=== PATIENT | female | born 1965 | race Caucasian/White ===

== ENCOUNTER 2018-06-30 10:06 | Emergency (ER) | payer OTHER ==
[~2018-06-30] VITALS: Ht 157.5 cm; Wt 58.1 kg
[~2018-06-30 10:06] MED LIST: CLARITIN10 MG PO; FLUOXETINE HCL20 MG PO; TOPAMAX25 MG PO
[2018-06-30] MEDS ORDERED: LITHATE20 MG PO (10:28)
[2018-06-30] MEDS ORDERED: VENTOLIN HFA18 GM (10:28)
[2018-06-30] MEDS ORDERED: PROTONIX40 MG PO (14:17)
== END 2018-06-30 14:37 | disposition home or self-care (01) ==
LOC: ED 10:06
DX: R10.13 Epigastric pain (principal); F32.9 Major depressive disorder, single episode, unspecified; Z90.710 Acquired absence of both cervix and uterus; Z88.5 Allergy status to narcotic agent; Z79.899 Other long term (current) drug therapy
CPT/HCPCS: 76705; 80053; 80178; 81001; 83690; 85025; 96361; 99284-25; C9113; J2405; J7030

== ENCOUNTER 2019-04-29 11:08 | Inpatient (IN) | payer OTHER ==
[~2019-04-29] VITALS: Ht 157.5 cm; Wt 59.9 kg
--- OUTSIDE RECORDS SUMMARY | ~2019-04-29 | XMS | Encounter Summary ---
Demographics + + + | Address | [address] | | | [place] [address] | + + + | Home Phone | | + + + | Preferred Language | Unknown | + + + | Marital Status | Legally | + + + | Holiness Affiliation | Unknown | + + + | Race | Unknown | + + + | Ethnic Group | Unknown | + + + Author + + + | Author | [facility] | | | and Ministerioana | + + + | Organization | [facility] | | | and Ministerioana | + + + | Address | Unknown | + + + | Phone | Unavailable | + + + Support + + + + + | Name | Relationship | Address | Phone | + + + + + | Radha Young | ECON | [address] | | | | | [place] | | | | | [place], [place] | | | | | [address] | | + + + + + | Flower Medina | ECON | [place], | | | | | [place] [address] | | + + + + + Care Team Providers + +------+ + | Care Metal Numerical Tool Programmer Name | Role | Phone | + +------+ + PCP | Unavailable | + +------+ + Encounter Details +--------+ + + + + | Date | Type | Department | Care Team | Description | +--------+ + + + + | 06/04/ | Hospital | [facility] | Ravinder Alvarez Jose, | | | 2006 - | Encounter | MED CTR WOMENS | MD [address] | | | | | [address] | [facility] [address] [facility] | | | 06/06/ | | [place], | [place] [address] | | | 2005 | | [place] [address] | [phone] | | | | | [phone] | | | +--------+ + + + + Social History + +-------+ +--------+------+ | Tobacco Use | Types | Packs/Day | Years | Date | | | | | Used | | + +-------+ +--------+------+ | Never Assessed | | | | | + +-------+ +--------+------+ + + + | Sex Assigned at | Date Recorded | | | | + + + | Not on file | | + + + + + + + | Job Start Date | Occupation | Industry | + + + + | Not on file | Not on file | Not on file | + + + + + + + + | Travel History | Travel Start | Travel End | + + + + + + | No recent travel history available. | + + documented as of this encounter Plan of Treatment Not on filedocumented as of this encounter Visit Diagnoses Not on filedocumented in this encounter"
--- OUTSIDE RECORDS SUMMARY | ~2019-04-29 | XMS | Encounter Summary ---
Demographics + + + | Address | [address] | | | [place] [address] | + + + | Home Phone | | + + + | Preferred Language | Unknown | + + + | Marital Status | Legally | + + + | Quaker Affiliation | Unknown | + + + | Race | Unknown | + + + | Ethnic Group | Unknown | + + + Author + + + | Author | [facility] | | | and Ministerioana | + + + | Organization | [facility] | | | and Ministerioana | + + + | Address | Unknown | + + + | Phone | Unavailable | + + + Support + + + + + | Name | Relationship | Address | Phone | + + + + + | Radha Young | ECON | [address] | | | | | [place] | | | | | [place], [place] | | | | | [address] | | + + + + + | Flower Medina | ECON | [place], | | | | | [place] [address] | | + + + + + Care Team Providers + +------+ + | Care Wreath Maker Name | Role | Phone | + +------+ + PCP | Unavailable | + +------+ + Encounter Details +--------+ + + + + | Date | Type | Department | Care Team | Description | +--------+ + + + + | 09/09/ | Hospital | [facility] | Benjamin Salazar MD | | | 2010 | Encounter | MED CTR XRAY [address] | | | | | [place] | [place], [place] | | | | | [place] [address] | [address] | | | | | [phone] | | | +--------+ + + + [...]
--- OUTSIDE RECORDS SUMMARY | ~2019-04-29 | XMS | Encounter Summary ---
Demographics + + + | Address | [address] | | | [place] [address] | + + + | Home Phone | | + + + | Preferred Language | Unknown | + + + | Marital Status | Legally | + + + | Spiritism Affiliation | Unknown | + + + | Race | Unknown | + + + | Ethnic Group | Unknown | + + + Author + + + | Author | [facility] | | | and Ministerioana | + + + | Organization | [facility] | | | and Ministerioana | + + + | Address | Unknown | + + + | Phone | Unavailable | + + + Support + + + + + | Name | Relationship | Address | Phone | + + + + + | Radha Young | ECON | [address] | | | | | [place] | | | | | [place], [place] | | | | | [address] | | + + + + + | Flower Medina | ECON | [place], | | | | | [place] [address] | | + + + + + Care Team Providers + +------+ + | Care Pillowcase Cleaner Name | Role | Phone | + +------+ + | Benjamin Salazar MD | PCP | | + +------+ + Encounter Details +--------+ + + + + | Date | Type | Department | Care Team | Description | +--------+ + + + + | 09/11/ | Hospital | [facility] | Jacey Murphy | | | 2012 | Encounter | MED CTR EMERGENCY | Cassidy Yang MD [address] | | | | | CENTER [address] | [facility] | | | | | [place] | [place] [address] | | | | | [address] | [phone] | | | | | [phone] | | | +--------+ + + + [...]
--- OUTSIDE RECORDS SUMMARY | ~2019-04-29 | XMS | Encounter Summary ---
Demographics + + + | Address | [address] | | | [place] [address] | + + + | Home Phone | | + + + | Preferred Language | Unknown | + + + | Marital Status | Legally | + + + | Moravian Affiliation | Unknown | + + + | Race | Unknown | + + + | Ethnic Group | Unknown | + + + Author + + + | Author | [facility] | | | and Ministerioana | + + + | Organization | [facility] | | | and Ministerioana | + + + | Address | Unknown | + + + | Phone | Unavailable | + + + Support + + + + + | Name | Relationship | Address | Phone | + + + + + | Radha Young | ECON | [address] | | | | | [place] | | | | | [place], [place] | | | | | [address] | | + + + + + | Flower Medina | ECON | [place], | | | | | [place] [address] | | + + + + + Care Team Providers + +------+ + | Care Cell Tuber Hand Name | Role | Phone | + +------+ + PCP | Unavailable | + +------+ + Encounter Details +--------+ + + + + | Date | Type | Department | Care Team | Description | +--------+ + + + + | 04/24/ | Hospital | [facility] | Ravinder Alvarez Jose, | | | 1995 - | Encounter | MED CTR WOMENS | MD [address] | | | | | [address] | [facility] | | | 04/27/ | | [place], | [place] [address] | | | 1994 | | [place] [address] | [phone] | | | | | [phone] | | | +--------+ + + + [...]
--- OUTSIDE RECORDS SUMMARY | ~2019-04-29 | XMS | Encounter Summary ---
Demographics + + + | Address | [address] | | | [place] [address] | + + + | Home Phone | | + + + | Preferred Language | Unknown | + + + | Marital Status | Legally | + + + | Denominational Affiliation | Unknown | + + + | Race | Unknown | + + + | Ethnic Group | Unknown | + + + Author + + + | Author | [facility] | | | and Ministerioana | + + + | Organization | [facility] | | | and Ministerioana | + + + | Address | Unknown | + + + | Phone | Unavailable | + + + Support + + + + + | Name | Relationship | Address | Phone | + + + + + | Radha Young | ECON | [address] | | | | | [place] | | | | | [place], [place] | | | | | [address] | | + + + + + | Flower Medina | ECON | [place], | | | | | [place] [address] | | + + + + + Care Team Providers + +------+ + | Care Superintendent Water And Sewer Systems Name | Role | Phone | + +------+ + PCP | Unavailable | + +------+ + Encounter Details +--------+ + + + + | Date | Type | Department | Care Team | Description | +--------+ + + + + | 02/17/ | Hospital | [facility] | | | | 1996 | Encounter | MED CTR EMERGENCY | | | | | | CENTER [address] | | | | | | [place] | | | | | | [address] | | | | | | [phone] | | | +--------+ + + + [...]
--- OUTSIDE RECORDS SUMMARY | ~2019-04-29 | XMS | Encounter Summary ---
Demographics + + + | Address | [address] | | | [place] [address] | + + + | Home Phone | | + + + | Preferred Language | Unknown | + + + | Marital Status | Legally | + + + | Pentecostalism Affiliation | Unknown | + + + | Race | Unknown | + + + | Ethnic Group | Unknown | + + + Author + + + | Author | [facility] | | | and Ministerioana | + + + | Organization | [facility] | | | and Ministerioana | + + + | Address | Unknown | + + + | Phone | Unavailable | + + + Support + + + + + | Name | Relationship | Address | Phone | + + + + + | Radha Young | ECON | [address] | | | | | [place] | | | | | [place], [place] | | | | | [address] | | + + + + + | Flower Medina | ECON | [place], | | | | | [place] [address] | | + + + + + Care Team Providers + +------+ + | 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 | Role | Phone | + +------+ + | Benjamin Salazar MD | PCP | | + +------+ + Reason for Visit + + + | Reason | Comments | + + + | Mental Health | | | Problem | | + + + Encounter Details +--------+ + + + + | Date | Type | Department | Care Team | Description | +--------+ + + + + | 05/09/ | Emergency | [facility] | Edgard Rodriguez, | Depression, | | 2017 | | [facility] | [place] [address] | unspecified | | | | [place] [address] | [place], [place] | depression type | | | | [place], [place] | [address] | (Primary Dx); | | | | [address] | | Situational mixed | | | | [phone] | | anxiety and | | | | | | depressive disorder | +--------+ + + + + Social History + +-------+ +--------+------+ | Tobacco Use | Types | Packs/Day | Years | Date | | | | | Used | | + +-------+ +--------+------+ | Never Smoker | | | | | + +-------+ +--------+------+ + + +---------+ + | Alcohol Use | Drinks/Week | oz/Week | Comments | + + +---------+ + | Yes | 3 Glasses of wine | 3.0 | | + + +---------+ + + + + | Sex Assigned at [...] + + documented as of this encounter Last Filed Vital Signs + + + + + | Vital Sign | Reading | Time Taken | Comments | + + + + + | Blood Pressure | 103/58 | 05/09/2018 7:46 PM | | | | | PST | | + + + + + | Pulse | 77 | 05/09/2018 7:46 PM | | | | | PST | | + + + + + | Temperature | 36.7 C (98.1 F) | 05/09/2018 4:53 PM | | | | | PST | | + + + + + | Respiratory Rate | 16 | 05/09/2018 7:46 PM | | | | | PST | | + + + + + | Oxygen Saturation | 100% | 05/09/2018 7:46 PM | | | | | PST | | + + + + + | Inhaled Oxygen | - | - | | | Concentration | | | | + + + + + | Weight | 62 kg (136 lb 11 oz) | 05/09/2018 4:52 PM | | | | | PST | | + + + + + | Height | 157.5 cm (5' 2") | 05/09/2018 4:53 PM | | | | | PST | | + + + + + | Body Mass Index | 25 | 05/09/2018 4:52 PM | | | | | PST | | + + + + + documented in this encounter Discharge Instructions AttachmentsThe following attachments cannot be sent through Care Everywhere.Anxiety Disorde oneal, Understanding (Occitan)documented in this encounter Medications at Time of Discharge + + + +---------+ + + | Medication | Sig | Dispensed | Refills | Start | End Date | | | | | | Date | | + + + +---------+ + + | cyclobenzaprine | Take 10 mg by mouth | | 0 | | | | (FLEXERIL) 10 mg | Twice daily as | | | | | | tablet | needed for Muscle | | | | | | | spasms. | | | | | + + + +---------+ + + | diazePAM (VALIUM) | Take 1 tablet by | 10 | 0 | 05/09/20 | | | 10 MG tablet | mouth every 6 hours | tablet | | 18 | | | | as needed for | | | | | | | Anxiety for up to 10 | | | | | | | doses. | | | | | + + + +---------+ + + | FLUoxetine | Take 40 mg by mouth | | 0 | | | | (PROZAC) 40 MG | Daily. | | | | | | capsule | | | | | | + + + +---------+ + + | Topiramate | Take by mouth. | | 0 | | | | (TOPAMAX PO) | | | | | | + + + +---------+ + + | traZODone | Take 1 tablet by | 30 | 0 | 05/09/20 | | | (DESYREL) 50 mg | mouth nightly. | tablet | | 18 | | | tablet | | | | | | + + + +---------+ + + documented as of this encounter Plan of Treatment Not on filedocumented as of this encounter Procedures + +--------+ + + + | Procedure Name | Priori | Date/Time | Associated Diagnosis | Comments | | | ty | | | | + +--------+ + + + | EXTRA LAVENDER TOP | Routin | 05/09/2018 | | Results for this | | TUBE | e | 6:10 PM | | procedure are in the | | | | PST | | results section. | + +--------+ + + + | EXTRA BLUE TOP TUBE | Routin | 05/09/2018 | | Results for this | | | e | 6:10 PM | | procedure are in the | | | | PST | | results section. | + +--------+ + + + | CBC WITH | STAT | 05/09/2018 | | Results for this | | DIFFERENTIAL | | 6:10 PM | | procedure are in the | | | | PST | | results section. | + +--------+ + + + | TSH | STAT | 05/09/2018 | | Results for this | | | | 6:10 PM | | procedure are in the | | | | PST | | results section. | + +--------+ + + + | ALCOHOL | STAT | 05/09/2018 | | Results for this | | | | 6:10 PM | | procedure are in the | | | | PST | | results section. | + +--------+ + + + | ACETAMINOPHEN LEVEL | STAT | 05/09/2018 | | Results for this | | | | 6:10 PM | | procedure are in the | | | | PST | | results section. | + +--------+ + + + | SALICYLATE LEVEL | STAT | 05/09/2018 | | Results for this | | | | 6:10 PM | | procedure are in the | | | | PST | | results section. | + +--------+ + + + | COMPREHENSIVE | STAT | 05/09/2018 | | Results for this | | METABOLIC PANEL | | 6:10 PM | | procedure are in the | | | | PST | | results section. | + +--------+ + + + | DRUGS OF ABUSE, | STAT | 05/09/2018 | | Results for this | | SCREEN, URINE | | 6:05 PM | | procedure are in the | | | | PST | | results section. | + +--------+ + + + | URINALYSIS WITH | STAT | 05/09/2018 | | Results for this | | MICROSCOPIC WITH | | 6:04 PM | | procedure are in the | | CULTURE IF INDICATED | | PST | | results section. | + +--------+ + + + documented in this encounter Results Extra Blue Top Tube (05/09/2018 6:10 PM PST) + +-------+ + + + | Component | Value | Ref Range | Performed | Pathologist | | | | | At | Signature | + +-------+ + + + | Extra Blue | Done | | [facility] | | | Top Tube | | | [facility] | | | | | | MEDICAL | | | | | | CENTER - | | | | | | LABORATORY | | + +-------+ + + + + + | Specimen | + + | Blood | + + + + + + + | Performing | Address | City/State/Zipcode | Phone Number | | Organization | | | | + + + + + | [facility] | [address] | [place] | [phone] | | [facility] | | [address] | | | - LABORATORY | | | | + + + + + Extra Lavender Top Tube (05/09/2018 6:10 PM PST) + +-------+ + + + | Component | Value | Ref Range | Performed | Pathologist | | | | | At | Signature | + +-------+ + + + | Extra | Done | | [facility] | | | Lavender | | | [facility] | | | Top Tube | | | MEDICAL | | | | | | CENTER - | | | | | | LABORATORY | | + +-------+ + + + + + | Specimen | + + | Blood | + + + + + + + | Performing | Address | City/State/Zipcode | Phone Number | | Organization | | | | + + + + + | [facility] | [address] | [place] | [phone] | | [facility] | | [address] | | | - LABORATORY | | | | + + + + + TSH (05/09/2018 6:10 PM PST) + + + + + + | Component | Value | Ref Range | Performed | Pathologist | | | | | At | Signature | + + + + + + | TSH | 1.49Comment: This is a | 0.45 - 5.33 | [facility] | | | | third generation TSH | uIU/mL | [facility] | | | | test. | | MEDICAL | | | | | | CENTER - | | | | | | LABORATORY | | + + + + + + + + | Specimen | + + | Blood | + + + + + + + | Performing | Address | City/State/Zipcode | Phone Number | | Organization | | | | + + + + + | [facility] | [address] | [place] | [phone] | | [facility] | | [address] | | | - LABORATORY | | | | + + + + + Salicylate Level (05/09/2018 6:10 PM PST) + +-------+ + + + | Component | Value | Ref Range | Performed | Pathologist | | | | | At | Signature | + +-------+ + + + | Salicylate | <4.0 | <30.0 mg/dL | [facility] | | | Level | | | [facility] | | | | | | MEDICAL | | | | | | CENTER - | | | | | | LABORATORY | | + +-------+ + + + + + | Specimen | + + | Blood | + + + + + + + | Performing | Address | City/State/Zipcode | Phone Number | | Organization | | | | + + + + + | [facility] | [address] | [place] | [phone] | | [facility] | | [address] | | | - LABORATORY | | | | + + + + + Acetaminophen Level (05/09/2018 6:10 PM PST) + +-------+ + + + | Component | Value | Ref Range | Performed | Pathologist | | | | | At | Signature | + +-------+ + + + | Acetaminoph | <10 | <10 ug/mL | [facility] | | | en Level | | | [facility] | | | | | | MEDICAL | | | | | | CENTER - | | | | | | LABORATORY | | + +-------+ + + + + + | Specimen | + + | Blood | + + + + + + + | Performing | Address | City/State/Zipcode | Phone Number | | Organization | | | | + + + + + | [facility] | [address] | [place] | [phone] | | [facility] | | [address] | | | - LABORATORY | | | | + + + + + Ethanol (05/09/2018 6:10 PM PST) + +-------+ + + + | Component | Value | Ref Range | Performed | Pathologist | | | | | At | Signature | + +-------+ + + + | ALCOHOL, | <5 | <400 mg/dL | [facility] | | | SERUM/PLASM | | | [facility] | | | A | | | MEDICAL | | | | | | CENTER - | | | | | | LABORATORY | | + +-------+ + + + + + | Specimen | + + | Blood | + + + + + + + | Performing | Address | City/State/Zipcode | Phone Number | | Organization | | | | + + + + + | [facility] | [address] | [place] | [phone] | | [facility] | | [address] | | | - LABORATORY | | | | + + + + + Comprehensive Metabolic Panel (05/09/2018 6:10 PM PST) + + + + + + | Component | Value | Ref Range | Performed | Pathologist | | | | | At | Signature | + + + + + + | Na | 137 | 136 - 149 | [facility] | | | | | mmol/L | [facility] | | | | | | MEDICAL | | | | | | CENTER - | | | | | | LABORATORY | | + + + + + + | K | 3.2 (L) | 3.5 - 5.1 | [facility] | | | | | mmol/L | [facility] | | | | | | MEDICAL | | | | | | CENTER - | | | | | | LABORATORY | | + + + + + + | Cl | 102 | 98 - 109 mmol/L | [facility] | | | | | | [facility] | | | | | | MEDICAL | | | | | | CENTER - | | | | | | LABORATORY | | + + + + + + | CO2 | 22 (L) | 24 - 31 mmol/L | [facility] | | | | | | [facility] | | | | | | MEDICAL | | | | | | CENTER - | | | | | | LABORATORY | | + + + + + + | Anion Gap | 13 | 3 - 16 mmol/L | [facility] | | | | | | [facility] | | | | | | MEDICAL | | | | | | CENTER - | | | | | | LABORATORY | | + + + + + + | Glucose | 90 | 70 - 109 mg/dL | [facility] | | | | | | [facility] | | | | | | MEDICAL | | | | | | CENTER - | | | | | | LABORATORY | | + + + + + + | BUN | 11 | 7 - 18 mg/dL | [facility] | | | | | | [facility] | | | | | | MEDICAL | | | | | | CENTER - | | | | | | LABORATORY | | + + + + + + | Creatinine | 0.89 | 0.60 - 1.30 | [facility] | | | | | mg/dL | [facility] | | | | | | MEDICAL | | | | | | CENTER - | | | | | | LABORATORY | | + + + + + + | eGFR if not | >60Comment: GLOMERULAR | >=60 | [facility] | | | | FILTRATION | mL/min/1.73m2 | [facility] | | | TUNISIAN | RATE,ESTIMATED | | MEDICAL | | | | mL/min/1.29c4Cjry than | | CENTER - | | | | 60 Chronic kidney | | LABORATORY | | | | disease,if found over a | | | | | | 3-month period.Less than | | | | | | 15 Kidney failureFor | | | | | | | | | | | | Americans,multiply the | | | | | | calculated GFR by 1.21. | | | | | | | | | | + + + + + + | Calcium | 9.2 | 8.3 - 10.5 | [facility] | | | | | mg/dL | [facility] | | | | | | MEDICAL | | | | | | CENTER - | | | | | | LABORATORY | | + + + + + + | Albumin | 3.9 | 3.2 - 5.0 g/dL | [facility] | | | | | | [facility] | | | | | | MEDICAL | | | | | | CENTER - | | | | | | LABORATORY | | + + + + + + | Bilirubin | 0.8Comment: This is an | 0.1 - 1.5 mg/dL | [facility] | | | Total | appended report. These | | [facility] | | | | results have been | | MEDICAL | | | | appended to a previously | | CENTER - | | | | preliminary verified | | LABORATORY | | | | report. | | | | + + + + + + | Total | 7.2 | 6.0 - 7.8 g/dL | [facility] | | | Protein | | | [facility] | | | | | | MEDICAL | | | | | | CENTER - | | | | | | LABORATORY | | + + + + + + | AST | 20Comment: This is an | 10 - 42 U/L | [facility] | | | | appended report. These | | [facility] | | | | results have been | | MEDICAL | | | | appended to a previously | | CENTER - | | | | preliminary verified | | LABORATORY | | | | report. | | | | + + + + + + | ALT | 15Comment: This is an | 6 - 45 U/L | [facility] | | | | appended report. These | | [facility] | | | | results have been | | MEDICAL | | | | appended to a previously | | CENTER - | | | | preliminary verified | | LABORATORY | | | | report. | | | | + + + + + + | Alkaline | 83Comment: This is an | 40 - 110 U/L | [facility] | | | Phosphatase | appended report. These | | [facility] | | | | results have been | | MEDICAL | | | | appended to a previously | | CENTER - | | | | preliminary verified | | LABORATORY | | | | report. | | | | + + + + + + | Globulin | 3.3 | 2.1 - 3.8 g/dL | [facility] | | | | | | [facility] | | | | | | MEDICAL | | | | | | CENTER - | | | | | | LABORATORY | | + + + + + + | Albumin/Michelle | 1.2 | 0.8 - 2.0 | [facility] | | | bulin Ratio | | | [facility] | | | | | | MEDICAL | | | | | | CENTER - | | | | | | LABORATORY | | + + + + + + | BUN/Creatin | 12.4 | | [facility] | | | ine Ratio | | | [facility] | | | | | | MEDICAL | | | | | | CENTER - | | | | | | LABORATORY | | + + + + + + + + | Specimen | + + | Blood | + + + + + + + | Performing | Address | City/State/Zipcode | Phone Number | | Organization | | | | + + + + + | [facility] | [address] | [place] | [phone] | | [facility] | | [address] | | | - LABORATORY | | | | + + + + + CBC with Differential (05/09/2018 6:10 PM PST) + +-------+ + + + | Component | Value | Ref Range | Performed | Pathologist | | | | | At | Signature | + +-------+ + + + | WBC | 7.6 | 4.0 - 11.0 K/uL | [facility] | | | | | | [facility] | | | | | | MEDICAL | | | | | | CENTER - | | | | | | LABORATORY | | + +-------+ + + + | RBC | 4.68 | 3.70 - 5.20 | [facility] | | | | | M/uL | [facility] | | | | | | MEDICAL | | | | | | CENTER - | | | | | | LABORATORY | | + +-------+ + + + | Hemoglobin | 14.4 | 11.5 - 16.0 | [facility] | | | | | g/dL | [facility] | | | | | | MEDICAL | | | | | | CENTER - | | | | | | LABORATORY | | + +-------+ + + + | Hematocrit | 43.8 | 34.0 - 47.0 % | [facility] | | | | | | [facility] | | | | | | MEDICAL | | | | | | CENTER - | | | | | | LABORATORY | | + +-------+ + + + | MCV | 93.6 | 83.0 - 101.0 fL | [facility] | | | | | | [facility] | | | | | | MEDICAL | | | | | | CENTER - | | | | | | LABORATORY | | + +-------+ + + + | MCH | 30.8 | 28.0 - 35.0 pg | [facility] | | | | | | [facility] | | | | | | MEDICAL | | | | | | CENTER - | | | | | | LABORATORY | | + +-------+ + + + | MCHC | 32.9 | 32.0 - 36.0 | [facility] | | | | | g/dL | [facility] | | | | | | MEDICAL | | | | | | CENTER - | | | | | | LABORATORY | | + +-------+ + + + | RDW-CV | 12.2 | <15.0 % | [facility] | | | | | | [facility] | | | | | | MEDICAL | | | | | | CENTER - | | | | | | LABORATORY | | + +-------+ + + + | RDW-SD | 42.5 | 35.1 - 46.3 fL | [facility] | | | | | | [facility] | | | | | | MEDICAL | | | | | | CENTER - | | | | | | LABORATORY | | + +-------+ + + + | Platelet | 282 | 140 - 440 K/uL | [facility] | | | Count | | | [facility] | | | | | | MEDICAL | | | | | | CENTER - | | | | | | LABORATORY | | + +-------+ + + + | MPV | 10.3 | 6.5 - 12.4 fL | [facility] | | | | | | [facility] | | | | | | MEDICAL | | | | | | CENTER - | | | | | | LABORATORY | | + +-------+ + + + | % | 58.9 | 45.0 - 82.0 % | [facility] | | | Neutrophils | | | [facility] | | | | | | MEDICAL | | | | | | CENTER - | | | | | | LABORATORY | | + +-------+ + + + | % | 31.9 | 20.0 - 45.0 % | [facility] | | | Lymphocytes | | | [facility] | | | | | | MEDICAL | | | | | | CENTER - | | | | | | LABORATORY | | + +-------+ + + + | % Monocytes | 5.8 | 4.0 - 12.0 % | [facility] | | | | | | [facility] | | | | | | MEDICAL | | | | | | CENTER - | | | | | | LABORATORY | | + +-------+ + + + | % | 2.6 | 0.0 - 5.0 % | [facility] | | | Eosinophils | | | [facility] | | | | | | MEDICAL | | | | | | CENTER - | | | | | | LABORATORY | | + +-------+ + + + | % Basophils | 0.4 | 0.0 - 1.0 % | [facility] | | | | | | [facility] | | | | | | MEDICAL | | | | | | CENTER - | | | | | | LABORATORY | | + +-------+ + + + | % Immature | 0.4 | 0.0 - 0.4 % | [facility] | | | Granulocyte | | | [facility] | | | s | | | MEDICAL | | | | | | CENTER - | | | | | | LABORATORY | | + +-------+ + + + | Absolute | 4.44 | 1.80 - 8.50 | [facility] | | | Neutrophils | | K/uL | [facility] | | | | | | MEDICAL | | | | | | CENTER - | | | | | | LABORATORY | | + +-------+ + + + | Absolute | 2.41 | 0.60 - 3.20 | [facility] | | | Lymphocytes | | K/uL | [facility] | | | | | | MEDICAL | | | | | | CENTER - | | | | | | LABORATORY | | + +-------+ + + + | Absolute | 0.44 | 0.00 - 1.00 | [facility] | | | Monocytes | | K/uL | [facility] | | | | | | MEDICAL | | | | | | CENTER - | | | | | | LABORATORY | | + +-------+ + + + | Absolute | 0.20 | 0.00 - 0.40 | [facility] | | | Eosinophils | | K/uL | [facility] | | | | | | MEDICAL | | | | | | CENTER - | | | | | | LABORATORY | | + +-------+ + + + | Absolute | 0.03 | 0.00 - 0.10 | [facility] | | | Basophils | | K/uL | [facility] | | | | | | MEDICAL | | | | | | CENTER - | | | | | | LABORATORY | | + +-------+ + + + | Absolute | 0.03 | 0.00 - 0.03 | [facility] | | | Immature | | K/uL | [facility] | | | Granulocyte | | | MEDICAL | | | s | | | CENTER - | | | | | | LABORATORY | | + +-------+ + + + | % nRBC | 0 | 0 - 2 per 100 | [facility] | | | | | WBC's | [facility] | | | | | | MEDICAL | | | | | | CENTER - | | | | | | LABORATORY | | + +-------+ + + + | Absolute | 0.00 | 0.00 - 0.01 | [facility] | | | nRBC | | K/uL | [facility] | | | | | | MEDICAL | | | | | | CENTER - | | | | | | LABORATORY | | + +-------+ + + + + + | Specimen | + + | Blood | + + + + + + + | Performing | Address | City/State/Zipcode | Phone Number | | Organization | | | | + + + + + | [facility] | [address] | [place] | [phone] | | [facility] | | [address] | | | - LABORATORY | | | | + + + + + Drugs of Abuse, Screen, Urine (05/09/2018 6:05 PM PST) + + + + + + | Component | Value | Ref Range | Performed | Pathologist | | | | | At | Signature | + + + + + + | Amphetamine | Negative | Negative | [facility] | | | Screen, | | | [facility] | | | Urine | | | MEDICAL | | | | | | CENTER - | | | | | | LABORATORY | | + + + + + + | Barbiturate | Negative | Negative | [facility] | | | s Screen, | | | [facility] | | | Urine | | | MEDICAL | | | | | | CENTER - | | | | | | LABORATORY | | + + + + + + | Benzodiazep | Positive (A) | Negative | [facility] | | | alonso | | | [facility] | | | Screen, | | | MEDICAL | | | Urine | | | CENTER - | | | | | | LABORATORY | | + + + + + + | Cannabinoid | Positive (A) | Negative | [facility] | | | s Screen, | | | [facility] | | | Urine | | | MEDICAL | | | | | | CENTER - | | | | | | LABORATORY | | + + + + + + | Cocaine | Negative | Negative | [facility] | | | Screen, | | | [facility] | | | Urine | | | MEDICAL | | | | | | CENTER - | | | | | | LABORATORY | | + + + + + + | Methadone | Negative | Negative | [facility] | | | Screen, | | | [facility] | | | Urine | | | MEDICAL | | | | | | CENTER - | | | | | | LABORATORY | | + + + + + + | Opiates | Negative | Negative | [facility] | | | Screen, | | | [facility] | | | Urine | | | MEDICAL | | | | | | CENTER - | | | | | | LABORATORY | | + + + + + + + + | Specimen | + + | Urine | + + + + + + + | Performing | Address | City/State/Zipcode | Phone Number | | Organization | | | | + + + + + | [facility] | [address] | [place] | [phone] | | [facility] | | [address] | | | - LABORATORY | | | | + + + + + Urinalysis with Microscopic with Culture if Indicated (05/09/2018 6:04 PM PST) + + + + + + | Component | Value | Ref Range | Performed | Pathologist | | | | | At | Signature | + + + + + + | Color | Yellow | Light Yellow, | [facility] | | | | | Yellow, Straw | [facility] | | | | | | MEDICAL | | | | | | CENTER - | | | | | | LABORATORY | | + + + + + + | Clarity | Clear | Clear | [facility] | | | | | | [facility] | | | | | | MEDICAL | | | | | | CENTER - | | | | | | LABORATORY | | + + + + + + | pH, Urine | 5.0 | 5.0 - 8.0 | [facility] | | | | | | [facility] | | | | | | MEDICAL | | | | | | CENTER - | | | | | | LABORATORY | | + + + + + + | Specific | 1.009 | 1.001 - 1.030 | [facility] | | | [place] | | | [facility] | | | | | | MEDICAL | | | | | | CENTER - | | | | | | LABORATORY | | + + + + + + | Protein, | Negative | Negative | [facility] | | | Urine | | | [facility] | | | | | | MEDICAL | | | | | | CENTER - | | | | | | LABORATORY | | + + + + + + | Blood, | Negative | Negative | [facility] | | | Urine | | | [facility] | | | | | | MEDICAL | | | | | | CENTER - | | | | | | LABORATORY | | + + + + + + | Glucose, | Negative | Negative | [facility] | | | Urine | | | [facility] | | | | | | MEDICAL | | | | | | CENTER - | | | | | | LABORATORY | | + + + + + + | Ketones, | Trace (A) | Negative | [facility] | | | Urine | | | [facility] | | | | | | MEDICAL | | | | | | CENTER - | | | | | | LABORATORY | | + + + + + + | Bilirubin, | Negative | Negative | [facility] | | | Urine | | | [facility] | | | | | | MEDICAL | | | | | | CENTER - | | | | | | LABORATORY | | + + + + + + | Nitrite, | Negative | Negative | [facility] | | | Urine | | | [facility] | | | | | | MEDICAL | | | | | | CENTER - | | | | | | LABORATORY | | + + + + + + | Leukocyte | Negative | Negative | [facility] | | | Esterase, | | | [facility] | | | Urine | | | MEDICAL | | | | | | CENTER - | | | | | | LABORATORY | | + + + + + + | Urobilinoge | 2.0 mg/dL (A) | 0.2 mg/dL, 1.0 | [facility] | | | n, Urine | | mg/dL, Negative | [facility] | | | | | | [facility] | | | | | | [facility] - | | | | | | LABORATORY | | + + + + + + | WBC UA | 0-2 | 0 - 2 /HPF | [facility] | | | | | | [facility] | | | | | | [facility] | | | | | | [facility] - | | | | | | LABORATORY | | + + + + + + | RBC UA | 0-2 | 0 - 2 /HPF | [facility] | | | | | | [facility] | | | | | | [facility] | | | | | | [facility] - | | | | | | LABORATORY | | + + + + + + | SQUAMOUS | 50-100 (A) | 0 - 2 /LPF | [facility] | | | EPITHELIAL | | | [facility] | | | U[facility] | | | [facility]ICAL | | | | | | CENTER - | | | | | | LABORATORY | | + + + + + + | BACTERIA UA | Negative | Negative /HPF | [facility] | | | | | | [facility] | | | | | | [facility] | | | | | | [facility] - | | | | | | LABORATORY | | + + + + + + | MUCUS UA | Present (A) | Negative /LPF | [facility] | | | | | | [facility] | | | | | | [facility] | | | | | | [facility] - | | | | | | LABORATORY | | + + + + + + | URINE | Urine Culture Not | | [facility] | | | COMMENT | Indicated | | [facility] | | | | | | [facility] | | | | | | [facility] - | | | | | | LABORATORY | | + + + + + + + + | Specimen | + + | Urine | + + + + + + + | Performing | Address | City/State/Zipcode | Phone Number | | Organization | | | | + + + + + | [facility] | [address] | [place] | [phone] | | [facility] | | [address] | | | - LABORATORY | | | | + + + + + documented in this encounter Visit Diagnoses + + | Diagnosis | + + | Depression, unspecified depression type - Primary | + + | Situational mixed anxiety and depressive disorder Adjustment disorder with mixed | | anxiety and depressed mood | + + documented in this encounter Administered Medications + +--------+ +------+------+------+ | Medication Order | MAR | Action | Dose | Rate | Site | | | Action | Date | | | | + +--------+ +------+------+------+ | ondansetron (ZOFRAN) injection | Given | 05/09/20 | 8 mg | | | | 8 mg 8 mg, Intravenous, ONCE, | | 18 6:16 | | | | | 05/09/18 at 1755, For 1 dose | | PM PST | | | | + +--------+ +------+------+------+ +---+---+ | | | +---+---+ + +---------+ +--------+-------+---+ | sodium chloride 0.9% (NS) bolus | New Bag | 05/09/20 | 1,000 | 4000 | | | 1,000 mL 1,000 mL, Intravenous, | | 18 6:15 | mLs | mL/hr | | | Administer over 15 Minutes, | | PM PST | | | | | ONCE, 05/09/18 at 1755, For 1 | | | | | | | dose | | | | | | + +---------+ +--------+-------+---+ +---+---+ | | | +---+---+ documented in this encounter
--- OUTSIDE RECORDS SUMMARY | ~2019-04-29 | XMS | Encounter Summary ---
Demographics + + + | Address | [address] | | | [place] [address] | + + + | Home Phone | | + + + | Preferred Language | Unknown | + + + | Marital Status | Legally | + + + | Moravian Affiliation | Unknown | + + + | Race | Unknown | + + + | Ethnic Group | Unknown | + + + Author + + + | Author | [facility] | | | and Ministerioana | + + + | Organization | [facility] | | | and Ministerioana | + + + | Address | Unknown | + + + | Phone | Unavailable | + + + Support + + + + + | Name | Relationship | Address | Phone | + + + + + | Radha Young | ECON | [address] | | | | | [place] | | | | | [place], [place] | | | | | [address] | | + + + + + | Flower Medina | ECON | [place], | | | | | [place] [address] | | + + + + + Care Team Providers + +------+ + | Care Chief Construction Inspector Name | Role | Phone | + +------+ + PCP | Unavailable | + +------+ + Encounter Details +--------+ + + + + | Date | Type | Department | Care Team | Description | +--------+ + + + + | 08/03/ | Hospital | [facility] | Jacey Murphy | | | 2006 | Encounter | MED CTR EMERGENCY | Cassidy Yang MD [address] | | | | | [address] | [facility] | | | | | [place] | [place] [address] | | | | | [address] | [phone] | | | | | [phone] | | | +--------+ + + + [...]
--- OUTSIDE RECORDS SUMMARY | ~2019-04-29 | XMS | Encounter Summary ---
Demographics + + + | Address | [address] | | | [place] [address] | + + + | Home Phone | | + + + | Preferred Language | Unknown | + + + | Marital Status | Legally | + + + | Orthodoxy Affiliation | Unknown | + + + | Race | Unknown | + + + | Ethnic Group | Unknown | + + + Author + + + | Author | [facility] | | | and Ministerioana | + + + | Organization | [facility] | | | and Ministerioana | + + + | Address | Unknown | + + + | Phone | Unavailable | + + + Support + + + + + | Name | Relationship | Address | Phone | + + + + + | aRdha Young | ECON | [address] | | | | | [place] | | | | | [place], [place] | | | | | [address] | | + + + + + | Flower Medina | ECON | [place], | | | | | [place] [address] | | + + + + + Care Team Providers + +------+ + | Care Composition Molder Name | Role | Phone | + +------+ + | Benjamin Salazar MD | PCP | | + +------+ + Encounter Details +--------+ + + + + | Date | Type | Department | Care Team | Description | +--------+ + + + + | 12/02/ | Imaging | [facility] | Provider, | | | 2017 | Exam | MED CTR EXTERNAL | MD [address]la [address] | | | | | IMAGING | [address] | | | | | [phone] | [place] [address] | | +--------+ + + + + [...] | + +--------+ + + + | MRI LUMBAR SPINE WO | Routin | 11/12/2016 | | Results for this | | CONTRAST | e | 9:00 AM | | procedure are in the | | | | PDT | | results section. | + +--------+ + + + documented in this encounter Results MRI Lumbar Spine wo Contrast (11/12/2016 9:00 AM PDT) + + | Specimen | + + | | + + + + + | Narrative | Performed At | + + + | External films for comparison only - no result from [facility]. | [facility] | + + + + +---------+ + + | Performing | Address | City/State/Zipcode | Phone Number | | Organization | | | | + +---------+ + + | [facility] | | | | + +---------+ + + documented in this encounter Visit Diagnoses Not on filedocumented in this encounter"
--- OUTSIDE RECORDS SUMMARY | ~2019-04-29 | XMS | Encounter Summary ---
Demographics + + + | Address | [address] | | | [place] [address] | + + + | Home Phone | | + + + | Preferred Language | Unknown | + + + | Marital Status | Legally | + + + | Worship Affiliation | Unknown | + + + | Race | Unknown | + + + | Ethnic Group | Unknown | + + + Author + + + | Author | [facility] | | | and Ministerioana | + + + | Organization | [facility] | | | and Ministerioana | + + + | Address | Unknown | + + + | Phone | Unavailable | + + + Support + + + + + | Name | Relationship | Address | Phone | + + + + + | Radha Young | ECON | [address] | | | | | [place] | | | | | [place], [place] | | | | | [address] | | + + + + + | Flower Medina | ECON | [place], | | | | | [place] [address] | | + + + + + Care Team Providers + +------+ + | Care Boilermaking Supervisor Name | Role | Phone | + +------+ + PCP | Unavailable | + +------+ + Encounter Details +--------+ + + + + | Date | Type | Department | Care Team | Description | +--------+ + + + + | 02/17/ | Hospital | [facility] | | | | 1996 | Encounter | MED CTR EMERGENCY | | | | | | CENTER [address] | | | | | | [place] | | | | | | [address] | | | | | | [phone] | | | +--------+ + + + [...]
--- OUTSIDE RECORDS SUMMARY | ~2019-04-29 | XMS | Encounter Summary ---
Demographics + + + | Address | [address] | | | [place] [address] | + + + | Home Phone | | + + + | Preferred Language | Unknown | + + + | Marital Status | Legally | + + + | Christianity Affiliation | Unknown | + + + | Race | Unknown | + + + | Ethnic Group | Unknown | + + + Author + + + | Author | [facility] | | | and Ministerioana | + + + | Organization | [facility] | | | and Ministerioana | + + + | Address | Unknown | + + + | Phone | Unavailable | + + + Support + + + + + | Name | Relationship | Address | Phone | + + + + + | Radha Young | ECON | [address] | | | | | [place] | | | | | [place], [place] | | | | | [address] | | + + + + + | Flower Medina | ECON | [place], | | | | | [place] [address] | | + + + + + Care Team Providers + +------+ + | Care Order Control Clerk Blood Bank Name | Role | Phone | + +------+ + PCP | Unavailable | + +------+ + Encounter Details +--------+ + + + + | Date | Type | Department | Care Team | Description | +--------+ + + + + | 04/24/ | Hospital | [facility] | Ravinder Alvarez Jose, | | | 1995 - | Encounter | MED CTR WOMENS | MD [address] | | | | | HEALTH [address] | [facility] | | | 04/27/ | | [place], | [place] [address] | | | 1994 | | [place] [address] | [phone] | | | | | [phone] | | | +--------+ + + + [...]
--- OUTSIDE RECORDS SUMMARY | ~2019-04-29 | XMS | Encounter Summary ---
Demographics + + + | Address | [address] | | | [place] [address] | + + + | Home Phone | | + + + | Preferred Language | Unknown | + + + | Marital Status | Legally | + + + | Jew Affiliation | Unknown | + + + | Race | Unknown | + + + | Ethnic Group | Unknown | + + + Author + + + | Author | [facility] | | | and Ministerioana | + + + | Organization | [facility] | | | and Ministerioana | + + + | Address | Unknown | + + + | Phone | Unavailable | + + + Support + + + + + | Name | Relationship | Address | Phone | + + + + + | Radha Young | ECON | [address] | | | | | [place] | | | | | [place], [place] | | | | | [address] | | + + + + + | Flower Medina | ECON | [place], | | | | | [place] [address] | | + + + + + Care Team Providers + +------+ + | Care Rounder And Backer Name | Role | Phone | + +------+ + PCP | Unavailable | + +------+ + Encounter Details +--------+ + + + + | Date | Type | Department | Care Team | Description | +--------+ + + + + | 06/04/ | Hospital | [facility] | Ravinder Alvarez Jose, | | | 2006 - | Encounter | MED CTR WOMENS | MD [address] | | | | | HEALTH [address] | [facility] | | | 06/06/ | | [place], [place] [address] | | | 2005 | | [place] [address] | [phone] | | | | | [phone] | | | +--------+ + + + [...]
--- OUTSIDE RECORDS SUMMARY | ~2019-04-29 | XMS | Encounter Summary ---
Demographics + + + | Address | [address] | | | [place] [address] | + + + | Home Phone | | + + + | Preferred Language | Unknown | + + + | Marital Status | Legally | + + + | Catholic Affiliation | Unknown | + + + | Race | Unknown | + + + | Ethnic Group | Unknown | + + + Author + + + | Author | [facility] | | | and Ministerioana | + + + | Organization | [facility] | | | and Ministerioana | + + + | Address | Unknown | + + + | Phone | Unavailable | + + + Support + + + + + | Name | Relationship | Address | Phone | + + + + + | Radha Young | ECON | [address] | | | | | [place] | | | | | [place], [place] | | | | | [address] | | + + + + + | Flower Medina | ECON | [place], | | | | | [place] [address] | | + + + + + Care Team Providers + +------+ + | Care Territory Representative Name | Role | Phone | + +------+ + PCP | Unavailable | + +------+ + Encounter Details +--------+ + + + + | Date | Type | Department | Care Team | Description | +--------+ + + + + | 12/19/ | Hospital | [facility] | Antonio Ravinder D, | | | 1994 | Encounter | MED CTR MP INTRA OP | MD [address] | | | | | [address] | [facility] | | | | | [place] | [place] [address] | | | | | [address] | [phone] | | | | | [phone] | | | +--------+ + + + [...]
--- OUTSIDE RECORDS SUMMARY | ~2019-04-29 | XMS | Encounter Summary ---
Demographics + + + | Address | [address] | | | [place] [address] | + + + | Home Phone | | + + + | Preferred Language | Unknown | + + + | Marital Status | Legally | + + + | Sabianism Affiliation | Unknown | + + + | Race | Unknown | + + + | Ethnic Group | Unknown | + + + Author + + + | Author | [facility] | | | and Ministerioana | + + + | Organization | [facility] | | | and Ministerioana | + + + | Address | Unknown | + + + | Phone | Unavailable | + + + Support + + + + + | Name | Relationship | Address | Phone | + + + + + | Radha Young | ECON | [address] | | | | | [place] | | | | | [place], [place] | | | | | [address] | | + + + + + | Flower Medina | ECON | [place], | | | | | [place] [address] | | + + + + + Care Team Providers + +------+ + | Care Unix Systems Administrator Name | Role | Phone | + +------+ + PCP | Unavailable | + +------+ + Encounter Details +--------+ + + + + | Date | Type | Department | Care Team | Description | +--------+ + + + + | 08/03/ | Hospital | [facility] | Jacey Murphy | | | 2006 | Encounter | MED CTR EMERGENCY | Cassidy Yang MD [address] | | | | | [place] [address] | [facility] | | | | | [place] | [place] [address] | | | | | [address] | [phone] | | | | | [phone] | | | +--------+ + + + [...]
--- OUTSIDE RECORDS SUMMARY | ~2019-04-29 | XMS | Encounter Summary ---
Demographics + + + | Address | [address] | | | [place] [address] | + + + | Home Phone | | + + + | Preferred Language | Unknown | + + + | Marital Status | Legally | + + + | Worship Affiliation | Unknown | + + + | Race | Unknown | + + + | Ethnic Group | Unknown | + + + Author + + + | Author | [facility] | | | and Ministerioana | + + + | Organization | [facility] | | | and Ministerioana | + + + | Address | Unknown | + + + | Phone | Unavailable | + + + Support + + + + + | Name | Relationship | Address | Phone | + + + + + | Radha Young | ECON | [address] | | | | | [place] | | | | | [place], [place] | | | | | [address] | | + + + + + | Flower Medina | ECON | [place], | | | | | [place] [address] | | + + + + + Care Team Providers + +------+ + | Care Renal Medicine Specialist Name | Role | Phone | + +------+ + PCP | Unavailable | + +------+ + Encounter Details +--------+ + + + + | Date | Type | Department | Care Team | Description | +--------+ + + + + | 08/03/ | Hospital | [facility] | Jacey Murphy | | | 2006 | Encounter | MED CTR EMERGENCY | Cassidy Yang MD [address] | | | | | [place] [address] | [facility] | | | | | [place] | [place] [address] | | | | | [address] | [phone] | | | | | [phone] | | | +--------+ + + + [...]
--- OUTSIDE RECORDS SUMMARY | ~2019-04-29 | XMS | Encounter Summary ---
Demographics + + + | Address | [address] | | | [place] [address] | + + + | Home Phone | | + + + | Preferred Language | Unknown | + + + | Marital Status | Legally | + + + | Druze Affiliation | Unknown | + + + | Race | Unknown | + + + | Ethnic Group | Unknown | + + + Author + + + | Author | [facility] | | | and Ministerioana | + + + | Organization | [facility] | | | and Ministerioana | + + + | Address | Unknown | + + + | Phone | Unavailable | + + + Support + + + + + | Name | Relationship | Address | Phone | + + + + + | Radha Young | ECON | [address] | | | | | [place] | | | | | [place], [place] | | | | | [address] | | + + + + + | Flower Mednia | ECON | [place], | | | | | [place] [address] | | + + + + + Care Team Providers + +------+ + | Care Principal Product Manager Name | Role | Phone | + +------+ + PCP | Unavailable | + +------+ + Encounter Details +--------+ + + + + | Date | Type | Department | Care Team | Description | +--------+ + + + + | 09/09/ | Hospital | [facility] | Benjamin Salazar MD | | | 2010 | Encounter | MED CTR XRAY [address] | [address] | | | | | [place] | [place], [place] | | | | | [place] [address] | [address] | | | | | [phone] | | | +--------+ + + + [...]
--- OUTSIDE RECORDS SUMMARY | ~2019-04-29 | XMS | Encounter Summary ---
Demographics + + + | Address | [address] | | | [place] [address] | + + + | Home Phone | | + + + | Preferred Language | Unknown | + + + | Marital Status | Legally | + + + | Islam Affiliation | Unknown | + + + | Race | Unknown | + + + | Ethnic Group | Unknown | + + + Author + + + | Author | [facility] | | | and Ministerioana | + + + | Organization | [facility] | | | and Ministerioana | + + + | Address | Unknown | + + + | Phone | Unavailable | + + + Support + + + + + | Name | Relationship | Address | Phone | + + + + + | Radha Young | ECON | [address] | | | | | [place] | | | | | [place], [place] | | | | | [address] | | + + + + + | Flower Medina | ECON | [place], | | | | | [place] [address] | | + + + + + Care Team Providers + +------+ + | Care Personal Injury Paralegal Name | Role | Phone | + +------+ + PCP | Unavailable | + +------+ + Encounter Details +--------+ + + + + | Date | Type | Department | Care Team | Description | +--------+ + + + + | 06/17/ | Hospital | [facility] | Ravinder Alvarez Jose, | | | 2006 - | Encounter | MED CTR WOMENS | MD [address] | | | | | HEALTH [address] | [facility] | | | 06/20/ | | [place], | [place] [address] | | | 2005 | | [place] [address] | [phone] | | | | | [phone] | | | +--------+ + + + [...]
--- OUTSIDE RECORDS SUMMARY | ~2019-04-29 | XMS | Encounter Summary ---
Demographics + + + | Address | [address] | | | [place] [address] | + + + | Home Phone | | + + + | Preferred Language | Unknown | + + + | Marital Status | Legally | + + + | Adventism Affiliation | Unknown | + + + | Race | Unknown | + + + | Ethnic Group | Unknown | + + + Author + + + | Author | [facility] | | | and Ministerioana | + + + | Organization | [facility] | | | and Ministerioana | + + + | Address | Unknown | + + + | Phone | Unavailable | + + + Support + + + + + | Name | Relationship | Address | Phone | + + + + + | Radha Young | ECON | [address] | | | | | [place] | | | | | [place], [place] | | | | | [address] | | + + + + + | Flower Medina | ECON | [place], | | | | | [place] [address] | | + + + + + Care Team Providers + +------+ + | Care Boulevard Glassware Replacer Name | Role | Phone | + +------+ + PCP | Unavailable | + +------+ + Encounter Details +--------+ + + + + | Date | Type | Department | Care Team | Description | +--------+ + + + + | 05/12/ | Hospital | [facility] | | | | 2006 | Encounter | MED CTR EMERGENCY | | | | | | CENTER [address] | | | | | | [place] | | | | | | [address] | | | | | | [phone] | | | +--------+ + + + [...]
--- OUTSIDE RECORDS SUMMARY | ~2019-04-29 | XMS | Encounter Summary ---
Demographics + + + | Address | [address] | | | [place] [address] | + + + | Home Phone | | + + + | Preferred Language | Unknown | + + + | Marital Status | Legally | + + + | Sabianist Affiliation | Unknown | + + + | Race | Unknown | + + + | Ethnic Group | Unknown | + + + Author + + + | Author | [facility] | | | and Ministerioana | + + + | Organization | [facility] | | | and Ministerioana | + + + | Address | Unknown | + + + | Phone | Unavailable | + + + Support + + + + + | Name | Relationship | Address | Phone | + + + + + | Radha Young | ECON | [address] | | | | | [place] | | | | | [place], [place] | | | | | [address] | | + + + + + | Flower Medina | ECON | [place], | | | | | [place] [address] | | + + + + + Care Team Providers + +------+ + | Care Regenerator Operator Name | Role | Phone | + +------+ + PCP | Unavailable | + +------+ + Encounter Details +--------+ + + + + | Date | Type | Department | Care Team | Description | +--------+ + + + + | 04/24/ | Hospital | [facility] | Ravinder Alvarez Jose, | | | 1995 - | Encounter | MED CTR WOMENS | MD [address] | | | | | HEALTH [address] | [facility] | | | 04/27/ | | [place], | [place] [address] | | | 1994 | | [place] [address] | [phone] | | | | | [phone] | | | +--------+ + + + [...]
--- OUTSIDE RECORDS SUMMARY | ~2019-04-29 | XMS | Clinical Summary ---
Demographics + + + | Address | [address] | | | [place] [address] | + + + | Home Phone | | + + + | Preferred Language | Unknown | + + + | Marital Status | Legally | + + + | Rastafari Affiliation | Unknown | + + + | Race | Unknown | + + + | Ethnic Group | Unknown | + + + Author + + + | Author | [facility] | | | and Ministerioana | + + + | Organization | [facility] | | | and Ministerioana | + + + | Address | Unknown | + + + | Phone | Unavailable | + + + Support + + + + + | Name | Relationship | Address | Phone | + + + + + | Radha Young | ECON | [address] | | | | | [place] | | | | | [place], [place] | | | | | [address] | | + + + + + | Flower Medina | ECON | [place], | | | | | [place] [address] | | + + + + + Care Team Providers + +------+ + | Care Environmental Consultant Name | Role | Phone | + +------+ + | Benjamin Salazar MD | PCP | | + +------+ + Allergies + + + + + + | Active Allergy | Reactions | Severity | Noted | Comments | | | | | Date | | + + + + + + | Meperidine | Other (See Comments) | | 05/09/20 | | | | | | 18 | | + + + + + + Medications + + + +---------+------+------+-------+ | Medication | Sig | Dispensed | Refills | Star | End | Statu | | | | | | t | Date | s | | | | | | Date | | | + + + +---------+------+------+-------+ | FLUoxetine | Take 40 mg by mouth | | 0 | | | Activ | | (PROZAC) 40 MG | Daily. | | | | | e | | capsule | | | | | | | + + + +---------+------+------+-------+ | Topiramate | Take by mouth. | | 0 | | | Activ | | (TOPAMAX PO) | | | | | | e | + + + +---------+------+------+-------+ | cyclobenzaprine | Take 10 mg by mouth | | 0 | | | Activ | | (FLEXERIL) 10 mg | Twice daily as | | | | | e | | tablet | needed for Muscle | | | | | | | | spasms. | | | | | | + + + +---------+------+------+-------+ | traZODone | Take 1 tablet by | 30 | 0 | 12/3 | | Activ | | (DESYREL) 50 mg | mouth nightly. | tablet | | 1/20 | | e | | tablet | | | | 18 | | | + + + +---------+------+------+-------+ | diazePAM (VALIUM) | Take 1 tablet by | 10 | 0 | 12/3 | | Activ | | 10 MG tablet | mouth every 6 hours | tablet | | 1/20 | | e | | | as needed for | | | 18 | | | | | Anxiety for up to 10 | | | | | | | | doses. | | | | | | + + + +---------+------+------+-------+ Active Problems Not on file Social History + +-------+ +--------+------+ | Tobacco [...] recent travel history available. | + + Last Filed Vital Signs + + + [...] | | + + + + + Plan of Treatment + + + + + | Health Maintenance | Due Date | Last Done | Comments | + + + + + | Vaccine: | | | | | Dtap/Tdap/Td (1 - | 8 | | | | Tdap) | | | | + + + + + | Cervical Cancer | | | | | Screening (Pap) | 7 | | | + + + + + | Breast Cancer | | | | | Screening | 2 | | | + + + + + | Vaccine: Zoster (1 | | | | | of 2) | 7 | | | + + + + + | Vaccine: Influenza | | | | | (#1) | 9 | | | + + + + + Results Not on filefrom Last 3 Months Insurance + +--------+ +--------+ +---------+--------+ | Payer | Benefi | Subscriber | Effect | Phone | Address | Type | | | t Plan | ID | [place] | | | | | | / | | Dates | | | | | | Group | | | | | | + +--------+ +--------+ +---------+--------+ | [place] | [place] | [id number] | 09/11/19 | [phone] | | Indemn | | | S [place] | | 13-Pre | 8 | | ity | | | [place] | | sent | | | | | | [place] | | | | | | + +--------+ +--------+ +---------+--------+ | [employer] | MODA | [id number] | | [phone] | | Medica | | MEDICAID HMO | HEALTH | | [phone]-Pr | 1 | | id | | | MDCD | | esent | | | | | | [place] | | | | | | + +--------+ +--------+ +---------+--------+ + +--------+ +--------+ + + | Guarantor Name | Accoun | Relation to | Date | Phone | Billing Address | | | t Type | Patient | of | | | | | | | | | | + +--------+ +--------+ + + | Giuliana oYung | Person | Self | [birth year] | [address] | | | al/Fam | | 1966 | [phone] | [place] [address] | | | chacha | | | 3 (Home) | | | | | | | [phone] | | | | | | | 0 (Work) | | + +--------+ +--------+ + + Advance Directives + + + + + | Type | Date Recorded | Patient | Explanation | | | | Store Receiving Specialist | | + + + + + | Power of | | | | | Seed Laboratory Assistant | | | | + + + + + | Advance | 05/09/2018 | | | | Directive | 6:11 PM | | | + + + + +
--- OUTSIDE RECORDS SUMMARY | ~2019-04-29 | XMS | Encounter Summary ---
Demographics + + + | Address | [address] | | | [place] [address] | + + + | Home Phone | | + + + | Preferred Language | Unknown | + + + | Marital Status | Legally | + + + | Episcopal Affiliation | Unknown | + + + | Race | Unknown | + + + | Ethnic Group | Unknown | + + + Author + + + | Author | [facility] | | | and Ministerioana | + + + | Organization | [facility] | | | and Ministerioana | + + + | Address | Unknown | + + + | Phone | Unavailable | + + + Support + + + + + | Name | Relationship | Address | Phone | + + + + + | Radha Young | ECON | [address] | | | | | [place] | | | | | [place], [place] | | | | | [address] | | + + + + + | Flower Medina | ECON | [place], | | | | | [place] [address] | | + + + + + Care Team Providers + +------+ + | Care Literacy Tutor Name | Role | Phone | + +------+ + PCP | Unavailable | + +------+ + Encounter Details +--------+ + + + + | Date | Type | Department | Care Team | Description | +--------+ + + + + | 12/19/ | Hospital | [facility] | Antonio Ravinder D, | | | 1995 | Encounter | MED CTR MP INTRA OP | MD [address] | | | | | [address] | [facility] | | | | | [place] | [place] [address] | | | | | [address] | [phone] | | | | | [phone] | | | +--------+ + + + [...]
--- OUTSIDE RECORDS SUMMARY | ~2019-04-29 | XMS | Encounter Summary ---
Demographics + + + | Address | [address] | | | [place] [address] | + + + | Home Phone | | + + + | Preferred Language | Unknown | + + + | Marital Status | Legally | + + + | Yarsanism Affiliation | Unknown | + + + | Race | Unknown | + + + | Ethnic Group | Unknown | + + + Author + + + | Author | [facility] | | | and Ministerioana | + + + | Organization | [facility] | | | and Ministerioana | + + + | Address | Unknown | + + + | Phone | Unavailable | + + + Support + + + + + | Name | Relationship | Address | Phone | + + + + + | Radha Young | ECON | [address] | | | | | [place] | | | | | [place], [place] | | | | | [address] | | + + + + + | Flower Medina | ECON | [place], | | | | | [place] [address] | | + + + + + Care Team Providers + +------+ + | Care Assurance Assistant Name | Role | Phone | + [...] + + | 05/09/ | Emergency | [facility] | Edgard Rodriguez, | Depression, | | 2017 | | MED CTR EMERGENCY | [place] [address] | unspecified | | | | [place] [address] | [place], [place] | depression type | | | | [place], [place] | [address] | (Primary Dx); | | | | [address] | | Situational mixed | | | | [phone] | | anxiety and | | | [...] sent through Care Everywhere.Anxiety Disorde oneal, Understanding (Lao)documented in this encounter Medications at Time of [...] [address] | [place] | [phone] | | [facility] | | [address] | | | - LABORATORY | | [...] + | [facility] | [address] | [place] | [phone] | | [facility] | | [address] | | | - LABORATORY | | [...] + | [address] | [address] | [place] | [phone] | | [facility] | | [address] | | | - LABORATORY | | [...] [address] | [place] | [phone] | | [facility] | | [address] | | | - LABORATORY | | [...] + | [address] [facility] | [address] | [place] | [phone] | | [facility] | | [address] | | | - LABORATORY | | [...] + | [address] [facility] | [address] | [place] | [phone] | | [facility] | | [address] | | | - LABORATORY | | [...] mL/min/1.73m2 | [facility] | | | GRENADIAN | RATE,ESTIMATED | | MEDICAL | | | | mL/min/1.97f5Ggbp than | | CENTER - | | [...] | | Protein | | | [facility] | | | | | | MEDICAL [...] [facility] | | | | | | [facility] | | [...] [address] | [place] | [phone] | | [facility] | | [address] | | | - LABORATORY | | [...] ST. | [address] | [place] | [phone] | | [facility] | | [address] | | | - LABORATORY | | [...] + | [facility] | [address] | [place] | [phone] | | [facility] | | [address] | | | - LABORATORY | | [...] - 1.030 | [facility] | | | Strong | | | [facility] | | [...] [address] | [place] | [phone] | | [facility] | | [address] | | | - LABORATORY | | [...]
--- OUTSIDE RECORDS SUMMARY | ~2019-04-29 | XMS | Encounter Summary ---
Demographics + + + | Address | [address] | | | [place] [address] | + + + | Home Phone | | + + + | Preferred Language | Unknown | + + + | Marital Status | Legally | + + + | Uatsdin Affiliation | Unknown | + + + | Race | Unknown | + + + | Ethnic Group | Unknown | + + + Author + + + | Author | [facility] | | | and Ministerioana | + + + | Organization | [facility] | | | and Ministerioana | + + + | Address | Unknown | + + + | Phone | Unavailable | + + + Support + + + + + | Name | Relationship | Address | Phone | + + + + + | Radha Young | ECON | [address] | | | | | [place] | | | | | [place], [place] | | | | | [address] | | + + + + + | Flower Medina | ECON | [place], | | | | | [place] [address] | | + + + + + Care Team Providers + +------+ + | Care 2Nd Pressman Name | Role | Phone | + +------+ + PCP | Unavailable | + +------+ + Encounter Details +--------+ + + + + | Date | Type | Department | Care Team | Description | +--------+ + + + + | 05/12/ | Hospital | [facility] | | | | 2006 | Encounter | MED CTR EMERGENCY | | | | | | CENTER [address] | | | | | | [place] | | | | | | [address] | | | | | | [phone] | | | +--------+ + + + [...]
--- OUTSIDE RECORDS SUMMARY | ~2019-04-29 | XMS | Encounter Summary ---
Demographics + + + | Address | [address] | | | [place] [address] | + + + | Home Phone | | + + + | Preferred Language | Unknown | + + + | Marital Status | Legally | + + + | Zoroastrian Affiliation | Unknown | + + + | Race | Unknown | + + + | Ethnic Group | Unknown | + + + Author + + + | Author | [facility] | | | and Ministerioana | + + + | Organization | [facility] | | | and Ministerioana | + + + | Address | Unknown | + + + | Phone | Unavailable | + + + Support + + + + + | Name | Relationship | Address | Phone | + + + + + | Radha Young | ECON | [address] | | | | | [place] | | | | | [place], [place] | | | | | [address] | | + + + + + | Flower Medina | ECON | [place], | | | | | [place] [address] | | + + + + + Care Team Providers + +------+ + | Care Paid Search Marketing Analyst Name | Role | Phone | + +------+ + | Benjamin Salazar MD | PCP | | + +------+ + Encounter Details +--------+ + + + + | Date | Type | Department | Care Team | Description | +--------+ + + + + | 09/11/ | Hospital | [facility] | Jacey Murphy | | | 2012 | Encounter | MED CTR EMERGENCY | Cassidy Yang MD 834 | | | | | CENTER [address] | [facility] | | | | | [place] | [place] [address] | | | | | [address] | [phone] | | | | | [phone] | | | +--------+ + + + [...]
--- OUTSIDE RECORDS SUMMARY | ~2019-04-29 | XMS | Encounter Summary ---
Demographics + + + | Address | [address] | | | [place] [address] | + + + | Home Phone | | + + + | Preferred Language | Unknown | + + + | Marital Status | Legally | + + + | Worship Affiliation | Unknown | + + + | Race | Unknown | + + + | Ethnic Group | Unknown | + + + Author + + + | Author | [facility] | | | and Ministerioana | + + + | Organization | [facility] | | | and Ministerioana | + + + | Address | Unknown | + + + | Phone | Unavailable | + + + Support + + + + + | Name | Relationship | Address | Phone | + + + + + | Radha Young | ECON | [address] | | | | | [place] | | | | | [place], [place] | | | | | [address] | | + + + + + | Flower Medina | ECON | [place], | | | | | [place] [address] | | + + + + + Care Team Providers + +------+ + | Care Waste Hand Name | Role | Phone | + +------+ + PCP | Unavailable | + +------+ + Encounter Details +--------+ + + + + | Date | Type | Department | Care Team | Description | +--------+ + + + + | 09/09/ | Hospital | [facility] | Benjamin Salazar MD | | | 2010 | Encounter | MED CTR XRAY [address] | [address] | | | | | [place] | [place], [place] | | | | | [place] [address] | [address] | | | | | [phone] | | | +--------+ + + + [...]
--- OUTSIDE RECORDS SUMMARY | ~2019-04-29 | XMS | Encounter Summary ---
Demographics + + + | Address | [address] | | | [place] [address] | + + + | Home Phone | | + + + | Preferred Language | Unknown | + + + | Marital Status | Legally | + + + | Roman Catholic Affiliation | Unknown | + + + | Race | Unknown | + + + | Ethnic Group | Unknown | + + + Author + + + | Author | [facility] | | | and Ministerioana | + + + | Organization | [facility] | | | and Ministerioana | + + + | Address | Unknown | + + + | Phone | Unavailable | + + + Support + + + + + | Name | Relationship | Address | Phone | + + + + + | Radha Young | ECON | [address] | | | | | [place] | | | | | [place], [place] | | | | | [address] | | + + + + + | Flower Medina | ECON | [place], | | | | | [place] [address] | | + + + + + Care Team Providers + +------+ + | Care Turn Laster Name | Role | Phone | + [...] [address] | | | | | [phone] | [place] [address] | | +--------+ + + + + [...] for comparison only - no result from [place]. | [facility] | + + + + +---------+ + + | Performing | Address | City/State/Zipcode | Phone Number | | Organization | | | | + +---------+ + + | [facility] | | | | + +---------+ + + documented in this encounter Visit Diagnoses Not on filedocumented in this encounter"
--- OUTSIDE RECORDS SUMMARY | ~2019-04-29 | XMS | Encounter Summary ---
Demographics + + + | Address | [address] | | | [place] [address] | + + + | Home Phone | | + + + | Preferred Language | Unknown | + + + | Marital Status | Legally | + + + | Mandaen Affiliation | Unknown | + + + | Race | Unknown | + + + | Ethnic Group | Unknown | + + + Author + + + | Author | [facility] | | | and Ministerioana | + + + | Organization | [facility] | | | and Ministerioana | + + + | Address | Unknown | + + + | Phone | Unavailable | + + + Support + + + + + | Name | Relationship | Address | Phone | + + + + + | Radha Young | ECON | [address] | | | | | [place] | | | | | [place], [place] | | | | | [address] | | + + + + + | Flower Medina | ECON | [place], | | | | | [place] [address] | | + + + + + Care Team Providers + +------+ + | Care Ice Guard Tester Name | Role | Phone | + +------+ + PCP | Unavailable | + +------+ + Encounter Details +--------+ + + + + | Date | Type | Department | Care Team | Description | +--------+ + + + + | 11/14/ | Hospital | [facility] | | | | 2002 | Encounter | MED CTR EMERGENCY | | | | | | CENTER [address] | | | | | | [place] | | | | | | [address] | | | | | | [phone] | | | +--------+ + + + [...]
--- OUTSIDE RECORDS SUMMARY | ~2019-04-29 | XMS | Encounter Summary ---
Demographics + + + | Address | [address] | | | [place] [address] | + + + | Home Phone | | + + + | Preferred Language | Unknown | + + + | Marital Status | Legally | + + + | Protestant Affiliation | Unknown | + + + | Race | Unknown | + + + | Ethnic Group | Unknown | + + + Author + + + | Author | [facility] | | | and Ministerioana | + + + | Organization | [facility] | | | and Ministerioana | + + + | Address | Unknown | + + + | Phone | Unavailable | + + + Support + + + + + | Name | Relationship | Address | Phone | + + + + + | Radha Young | ECON | [address] | | | | | [place] | | | | | [place], [place] | | | | | [address] | | + + + + + | Flower Medina | ECON | [place], | | | | | [place] [address] | | + + + + + Care Team Providers + +------+ + | Care Policy Value Calculator Name | Role | Phone | + +------+ + PCP | Unavailable | + +------+ + Encounter Details +--------+ + + + + | Date | Type | Department | Care Team | Description | +--------+ + + + + | 11/14/ | Hospital | [facility] | | | | 2002 | Encounter | MED CTR EMERGENCY | | | | | | CENTER [address] | | | | | | [place] | | | | | | [address] | | | | | | [phone] | | | +--------+ + + + [...]
--- OUTSIDE RECORDS SUMMARY | ~2019-04-29 | XMS | Clinical Summary ---
Demographics + + + | Address | [address] | | | [place] [address] | + + + | Home Phone | | + + + | Preferred Language | Unknown | + + + | Marital Status | Legally | + + + | Hindu Affiliation | Unknown | + + + | Race | Unknown | + + + | Ethnic Group | Unknown | + + + Author + + + | Author | [facility] | | | and Ministerioana | + + + | Organization | [facility] | | | and Ministerioana | + + + | Address | Unknown | + + + | Phone | Unavailable | + + + Support + + + + + | Name | Relationship | Address | Phone | + + + + + | Radha Young | ECON | [address] | | | | | [place] | | | | | [place], [place] | | | | | [address] | | + + + + + | Flower Medina | ECON | [place], | | | | | [place] [address] | | + + + + + Care Team Providers + +------+ + | Care Lpn Medical Assistant Name | Role | Phone | [...] | [place] | [place]CT[place] | [id number] | 09/11/19 | [phone] | | Indemn | | | S OF | | 13-Pre | 8 | | ity | | | [place] | | sent | | | | | | [place] | | | | | | + +--------+ +--------+ +---------+--------+ | [employer] | MODA | [id number] | | [phone] | | Medica | | MEDICAID HMO [...] + +--------+ +--------+ + + | Giuliana Young | Person | Self | [birth year] | [address] | | | al/Fam | | 1966 | [phone] | [place] [address] | | | [place] | | | 3 (Home) | | | | | | | [phone] | | | | | | | 0 (Work) | | + +--------+ +--------+ + + Advance Directives + + + + + | Type | Date Recorded | Patient | Explanation | | | | Enterprise Integration Architect | | + + + + + | Power of | | | | | Pepper Cutter | | | | + + + + + | Advance | 05/09/2018 | | | | Directive | 6:11 PM | | | + + + + +
--- OUTSIDE RECORDS SUMMARY | ~2019-04-29 | XMS | Encounter Summary ---
Demographics + + + | Address | [address] | | | [place] [address] | + + + | Home Phone [...] + + + | Author | [facility] | | | and Ministerioana | + + + | Organization | [facility] | | | and Ministerioana | + + + | Address | Unknown | + + + | Phone | Unavailable | + + + Support + + + + + | Name | Relationship | Address | Phone | + + + + + | Radha Young | ECON | [address] | | | | | [place] | | | | | [place], [place] | | | | | [address] | | + + + + + | Flower Medina | ECON | [place], | | | | | [place] [address] | | + + + + + Care Team Providers + +------+ + | Care Microfiche Duplicator Name | Role | Phone | + +------+ + PCP | Unavailable | + +------+ + Encounter Details +--------+ + + + + | Date | Type | Department | Care Team | Description | +--------+ + + + + | 02/17/ | Hospital | [facility] | | | | 1996 | Encounter | MED CTR EMERGENCY | | | | | | CENTER [address] | | | | | | [place] | | | | | | [address] | | | | | | [phone] | | | +--------+ + + + [...]
--- OUTSIDE RECORDS SUMMARY | ~2019-04-29 | XMS | Encounter Summary ---
Demographics + + + | Address | [address] | | | [place] [address] | + + + | Home Phone | | + + + | Preferred Language | Unknown | + + + | Marital Status | Legally | + + + | Mosque Affiliation | Unknown | + + + | Race | Unknown | + + + | Ethnic Group | Unknown | + + + Author + + + | Author | [facility] | | | and Ministerioana | + + + | Organization | [facility] | | | and Ministerioana | + + + | Address | Unknown | + + + | Phone | Unavailable | + + + Support + + + + + | Name | Relationship | Address | Phone | + + + + + | Radha Young | ECON | [address] | | | | | [place] | | | | | [place], [place] | | | | | [address] | | + + + + + | Flower Medina | ECON | [place], | | | | | [place] [address] | | + + + + + Care Team Providers + +------+ + | Care Stick Feeder Name | Role | Phone | + +------+ + | Bejnamin Salazar MD | PCP | | + +------+ + Encounter Details +--------+ + + + + | Date | Type | Department | Care Team | Description | +--------+ + + + + | 09/11/ | Hospital | [facility] | Jacey Murphy | | | 2012 | Encounter | MED CTR EMERGENCY | Cassidy Yang MD 834 | | | | | CENTER [address] | [facility] | | | | | [place] | [place] [address] | | | | | [address] | [phone] | | | | | [phone] | | | +--------+ + + + [...]
--- OUTSIDE RECORDS SUMMARY | ~2019-04-29 | XMS | Encounter Summary ---
Demographics + + + | Address | [address] | | | [place] [address] | + + + | Home Phone | | + + + | Preferred Language | Unknown | + + + | Marital Status | Legally | + + + | Anglican Affiliation | Unknown | + + + | Race | Unknown | + + + | Ethnic Group | Unknown | + + + Author + + + | Author | [facility] | | | and Ministerioana | + + + | Organization | [facility] | | | and Ministerioana | + + + | Address | Unknown | + + + | Phone | Unavailable | + + + Support + + + + + | Name | Relationship | Address | Phone | + + + + + | Radha Young | ECON | [address] | | | | | [place] | | | | | [place], [place] | | | | | [address] | | + + + + + | Flower Medina | ECON | [place], | | | | | [place] [address] | | + + + + + Care Team Providers + +------+ + | Care Display Trimmer Name | Role | Phone | + +------+ + PCP | Unavailable | + +------+ + Encounter Details +--------+ + + + + | Date | Type | Department | Care Team | Description | +--------+ + + + + | 11/14/ | Hospital | [facility] | | | | 2002 | Encounter | MED CTR EMERGENCY | | | | | | CENTER [address] | | | | | | [place] | | | | | | [address] | | | | | | [phone] | | | +--------+ + + + [...]
--- OUTSIDE RECORDS SUMMARY | ~2019-04-29 | XMS | Encounter Summary ---
Demographics + + + | Address | [address] | | | [place] [address] | + + + | Home Phone | | + + + | Preferred Language | Unknown | + + + | Marital Status | Legally | + + + | Scientologist Affiliation | Unknown | + + + | Race | Unknown | + + + | Ethnic Group | Unknown | + + + Author + + + | Author | [facility] | | | and Ministerioana | + + + | Organization | [facility] | | | and Ministerioana | + + + | Address | Unknown | + + + | Phone | Unavailable | + + + Support + + + + + | Name | Relationship | Address | Phone | + + + + + | Radha Young | ECON | [address] | | | | | [place] | | | | | [place], [place] | | | | | [address] | | + + + + + | Flower Medina | ECON | [place], | | | | | [place] [address] | | + + + + + Care Team Providers + +------+ + | Care Longshore Equipment Operator Name | Role | Phone | + +------+ + PCP | Unavailable | + +------+ + Encounter Details +--------+ + + + + | Date | Type | Department | Care Team | Description | +--------+ + + + + | 12/19/ | Hospital | [facility] | Antonio Ravinder D, | | | 1995 | Encounter | MED CTR MP INTRA OP | MD [address] | | | | | [address] | [facility] | | | | | [place] | [facility] [place] [address] | | | | | [address] | [phone] | | | | | [phone] | | | +--------+ + + + [...]
--- OUTSIDE RECORDS SUMMARY | ~2019-04-29 | XMS | Encounter Summary ---
Demographics + + + | Address | [address] | | | [place] [address] | + + + | Home Phone | | + + + | Preferred Language | Unknown | + + + | Marital Status | Legally | + + + | Druze Affiliation | Unknown | + + + | Race | Unknown | + + + | Ethnic Group | Unknown | + + + Author + + + | Author | [facility] | | | and Ministerioana | + + + | Organization | [facility] | | | and Ministerioana | + + + | Address | Unknown | + + + | Phone | Unavailable | + + + Support + + + + + | Name | Relationship | Address | Phone | + + + + + | Radha Young | ECON | [address] | | | | | [place] | | | | | [place], [place] | | | | | [address] | | + + + + + | Flower Medina | ECON | [place], | | | | | [place] [address] | | + + + + + Care Team Providers + +------+ + | Care English Adjunct Faculty Name | Role | Phone | + [...] [address] | | | | | [phone] | [place] [address] | | +--------+ + + + + [...] for comparison only - no result from [place]. | [facility] | + + + + +---------+ + + | Performing | Address | City/State/Zipcode | Phone Number | | Organization | | | | + +---------+ + + | [facility] | | | | + +---------+ + + documented in this encounter Visit Diagnoses Not on filedocumented in this encounter"
--- OUTSIDE RECORDS SUMMARY | ~2019-04-29 | XMS | Clinical Summary ---
Demographics + + + | Address | [address] | | | [place] [address] | + + + | Home Phone | | + + + | Preferred Language | Unknown | + + + | Marital Status | Legally | + + + | Lutheran Affiliation | Unknown | + + + | Race | Unknown | + + + | Ethnic Group | Unknown | + + + Author + + + | Author | [facility] | | | and Ministerioana | + + + | Organization | [facility] | | | and Ministerioana | + + + | Address | Unknown | + + + | Phone | Unavailable | + + + Support + + + + + | Name | Relationship | Address | Phone | + + + + + | Radha Young | ECON | [address] | | | | | [place] | | | | | [place], [place] | | | | | [address] | | + + + + + | Flower Medina | ECON | [place], | | | | | [place] [address] | | + + + + + Care Team Providers + +------+ + | Care Mobile Web Application Developer Name | Role | Phone | + [...] | [place] | [place]CT[place] | [id number] | 09/11/19 | [phone] | | Indemn | | | S OF | | 13-Pre | 8 | | ity | | | [place] | | sent | | | | | | [place] | | | | | | + +--------+ +--------+ +---------+--------+ | [employer] | MODA | [id number] | | [phone] | | Medica | | MEDICAID HMO [...] | | al/Fam | | 1966 | [phone] | [place] [address] | | | [place] | | | 3 (Home) | | | | | | | [phone] | | | | | | | 0 (Work) | | + +--------+ +--------+ + + Advance Directives + + + + + | Type | Date Recorded | Patient | Explanation | | | | Contact Center Specialist | | + + + + + | Power of | | | | | Dental Ceramist | | | | + + + + + | Advance | 05/09/2018 | | | | Directive | 6:11 PM | | | + + + + +
--- OUTSIDE RECORDS SUMMARY | ~2019-04-29 | XMS | Encounter Summary ---
Demographics + + + | Address | [address] | | | [place] [address] | + + + | Home Phone | | + + + | Preferred Language | Unknown | + + + | Marital Status | Legally | + + + | Latter Day Affiliation | Unknown | + + + | Race | Unknown | + + + | Ethnic Group | Unknown | + + + Author + + + | Author | [facility] | | | and Ministerioana | + + + | Organization | [facility] | | | and Ministerioana | + + + | Address | Unknown | + + + | Phone | Unavailable | + + + Support + + + + + | Name | Relationship | Address | Phone | + + + + + | Radha Young | ECON | [address] | | | | | [place] | | | | | [place], [place] | | | | | [address] | | + + + + + | Flower Medina | ECON | [place], | | | | | [place] [address] | | + + + + + Care Team Providers + +------+ + | Care Rn Ed Name | Role | Phone | + +------+ + PCP | Unavailable | + +------+ + Encounter Details +--------+ + + + + | Date | Type | Department | Care Team | Description | +--------+ + + + + | 06/17/ | Hospital | [facility] | Ravinder Alvarez Jose, | | | 2006 - | Encounter | [facility] | MD [address] | | | | | HEALTH [address] | [facility] | | | 06/20/ | | [place], | [place] [address] | | | 2005 | | [place] [address] | [phone] | | | | | [phone] | | | +--------+ + + + [...]
--- OUTSIDE RECORDS SUMMARY | ~2019-04-29 | XMS | Encounter Summary ---
Demographics + + + | Address | [address] | | | [place] [address] | + + + | Home Phone | | + + + | Preferred Language | Unknown | + + + | Marital Status | Legally | + + + | Buddhism Affiliation | Unknown | + + + | Race | Unknown | + + + | Ethnic Group | Unknown | + + + Author + + + | Author | [facility] | | | and Ministerioana | + + + | Organization | [facility] | | | and Ministerioana | + + + | Address | Unknown | + + + | Phone | Unavailable | + + + Support + + + + + | Name | Relationship | Address | Phone | + + + + + | Radha Young | ECON | [address] | | | | | [place] | | | | | [place], [place] | | | | | [address] | | + + + + + | Flower Medina | ECON | [place], | | | | | [place] [address] | | + + + + + Care Team Providers + +------+ + | Care Warehouse Order Selector Name | Role | Phone | + +------+ + PCP | Unavailable | + +------+ + Encounter Details +--------+ + + + + | Date | Type | Department | Care Team | Description | +--------+ + + + + | 06/04/ | Hospital | [facility] | Ravinder Alvarez Jose, | | | 2006 - | Encounter | MED [facility] | MD [address] | | | | | HEALTH [address] | [facility] | | | 06/06/ | | [place], | [place] [address] | | | 2004 | | [place] [address] | [phone] | | | | | [phone] | | | +--------+ + + + [...]
--- OUTSIDE RECORDS SUMMARY | ~2019-04-29 | XMS | Encounter Summary ---
Demographics + + + | Address | [address] | | | [place] [address] | + + + | Home Phone | | + + + | Preferred Language | Unknown | + + + | Marital Status | Legally | + + + | Presybeterian Affiliation | Unknown | + + + | Race | Unknown | + + + | Ethnic Group | Unknown | + + + Author + + + | Author | [facility] | | | and Ministerioana | + + + | Organization | [facility] | | | and Ministerioana | + + + | Address | Unknown | + + + | Phone | Unavailable | + + + Support + + + + + | Name | Relationship | Address | Phone | + + + + + | Radha Young | ECON | [address] | | | | | [place] | | | | | [place], [place] | | | | | [address] | | + + + + + | Flower Medina | ECON | [place], | | | | | [place] [address] | | + + + + + Care Team Providers + +------+ + | Care Logistic Manager Name | Role | Phone | + +------+ + PCP | Unavailable | + +------+ + Encounter Details +--------+ + + + + | Date | Type | Department | Care Team | Description | +--------+ + + + + | 05/12/ | Hospital | [facility] | | | | 2006 | Encounter | MED CTR EMERGENCY | | | | | | CENTER [address] | | | | | | [place] | | | | | | [address] | | | | | | [phone] | | | +--------+ + + + [...]
--- OUTSIDE RECORDS SUMMARY | ~2019-04-29 | XMS | Encounter Summary ---
Demographics + + + | Address | [address] | | | [place] [address] | + + + | Home Phone [...] + | Author | [facility] | | | and Ministerioana | + + + | Organization | [facility] | | | and Ministerioana | + + + | Address | Unknown | + + + | Phone | Unavailable | + + + Support + + + + + | Name | Relationship | Address | Phone | + + + + + | Radha Young | ECON | [address] | | | | | [place] | | | | | [place], [place] | | | | | [address] | | + + + + + | Flower Medina | ECON | [place], | | | | | [place] [address] | | + + + + + Care Team Providers + +------+ + | Care Grey Tender Name | Role | Phone | + [...] + + | 05/09/ | Emergency | [facility] | Edgard Rodriguez, | Depression, | | 2017 | | MED CTR EMERGENCY | [place] [address] | unspecified | | | | [place] [address] | [place], [place] | depression type | | | | [place], [place] | [address] | (Primary Dx); | | | | [address] | | Situational mixed | | | | [phone] | | anxiety and | | | [...] sent through Care Everywhere.Anxiety Disorde oneal, Understanding (Latvian)documented in this encounter Medications at Time of [...] [address] | [place] | [phone] | | [facility] | | [address] | | | - LABORATORY | | [...] + | [facility] | [address] | [place] | [phone] | | [facility] | | [address] | | | - LABORATORY | | [...] + | [address] | [address] | [place] | [phone] | | [facility] | | [address] | | | - LABORATORY | | [...] [address] | [place] | [phone] | | [facility] | | [address] | | | - LABORATORY | | [...] + | [address] [facility] | [address] | [place] | [phone] | | [facility] | | [address] | | | - LABORATORY | | [...] + | [address] | [address] | [place] | [phone] | | [facility] | | [address] | | | - LABORATORY | | [...] mL/min/1.73m2 | [facility] | | | [facility] | RATE,ESTIMATED | | MEDICAL | | | | mL/min/1.56g6Qvat than | | CENTER - | | [...] [address] | [place] | [phone] | | [facility] | | [address] | | | - LABORATORY | | [...] ST. | [address] | [place] | [phone] | | [facility] | | [address] | | | - LABORATORY | | [...] + | [facility] | [address] | [place] | [phone] | | [facility] | | [address] | | | - LABORATORY | | [...] - 1.030 | [facility] | | | [place] | | | [facility] | | [...] [address] | [place] | [phone] | | [facility] | | [address] | | | - LABORATORY | | [...]
--- OUTSIDE RECORDS SUMMARY | ~2019-04-29 | XMS | Encounter Summary ---
Demographics + + + | Address | [address] | | | [place] [address] | + + + | Home Phone | | + + + | Preferred Language | Unknown | + + + | Marital Status | Legally | + + + | Alevism Affiliation | Unknown | + + + | Race | Unknown | + + + | Ethnic Group | Unknown | + + + Author + + + | Author | [facility] | | | and Ministerioana | + + + | Organization | [facility] | | | and Ministerioana | + + + | Address | Unknown | + + + | Phone | Unavailable | + + + Support + + + + + | Name | Relationship | Address | Phone | + + + + + | Radha Young | ECON | [address] | | | | | [place] | | | | | [place], [place] | | | | | [address] | | + + + + + | Flower Medina | ECON | [place], | | | | | [place] [address] | | + + + + + Care Team Providers + +------+ + | Care Fire Patroller Name | Role | Phone | + +------+ + PCP | Unavailable | + +------+ + Encounter Details +--------+ + + + + | Date | Type | Department | Care Team | Description | +--------+ + + + + | 06/17/ | Hospital | [facility] | Ravinder Alvarez Jose, | | | 2006 - | Encounter | MED CTR [facility]OMENS | MD [address] | | | | | HEALTH [address]CS [address] | [facility] | | | 06/20/ | | [place], | [place] [address] | | | 2004 | | [place] [address] | [phone] | | | | | [phone] | | | +--------+ + + + [...]
[~2019-04-29 11:08] MED LIST changes: +DOTTI1 EAC2 TD; +LITHATE20 MG PO; +PROTONIX40 MG PO; +VENTOLIN HFA18 GM
--- OUTSIDE RECORDS SUMMARY | 2019-04-29 11:10 | XMS ---
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 Thalia has no Care Guidelines for this patient. Babita VISIT COUNT (12 MO.) 1 Harrisonbogdan Goel M.C. 3 AL[facility]ERT Cates TOTAL 4 NOTE: Visits indicate total known visits. ED/UCC VISIT TRACKING (12 MO.) 04/29/2019 11:08 [facility] [place] TYPE: Emergency COMPLAINT: - POSSIBLE OD 11/23/2018 10:18 [facility] [place] TYPE: Emergency COMPLAINT: - SUICIDAL THOUGHTS, ANXIETY DIAGNOSES: - Epigastric pain - Major depressive disorder, single episode, unspecified - Major depressive disorder, single episode, unspecified - Allergy status to oth drug/meds/biol subst status - Other fdc (current) drug therapy 06/30/2018 10:06 [facility] TYPE: Emergency COMPLAINT: - ABD PAIN DIAGNOSES: - Allergy status to narcotic agent status - Other fdc (current) drug therapy - Acquired absence of both cervix and uterus - Upper abdominal pain, unspecified - Major depressive disorder, single episode, unspecified - Epigastric pain 05/09/2018 16:37 [facility] TYPE: Emergency DIAGNOSES: - Mental Health Problem - Adjustment disorder with mixed anxiety and depressed mood - anxiety - Major depressive disorder, single episode, unspecified INPATIENT VISIT TRACKING (12 MO.) No inpatient visits to display in this time frame [email or web address]
--- NOTE | 2019-04-29 15:15 | NUR ---
PT HERE FROM ER, NOT ABLE TO TRANSFER SELF FROM GURNEY TO BED, LATERAL TRANSFER DONE WITH DRAW SHEET. PT DROWSY, OPENS EYES BRIEFLY AND FALLS BACK TO SLEEP. PT MUMBLES, MOST IS NOT UNDERSTANDABLE. PT IS COOPERATIVE, NON-COMBATIVE. ANSWERS YES/NO QUESTIONS. IV SITES ARE INTACT IN LEFT AC AND RT AC.
--- NOTE | 2019-04-29 15:35 | NUR ---
PT REQUESTS TO USE THE BEDPAN, ABLE TO VOID 150 ML CLEAR YELLOW URINE.
--- NOTE | 2019-04-29 15:41 | NUR ---
IV SITES ARE INTACT, NO REDNESS OR SWELLING NOTED, FLUIDS AND FLUSHES INFUSE EASILY, PT DENIES PAIN WITH FLUSH. PT MUMBLES, DIFFICULT TO UNDERSTAND, DROWSY, COOPERATIVE. VITALS ARE WNL, PT REMAINS ON ROOM AIR.
[2019-04-29] MEDS ORDERED: REXULTI1 MG PO (16:03)
[2019-04-29] MEDS ORDERED: PROZAC20 MG PO (16:04)
[2019-04-29] MEDS ORDERED: CYCLOBENZAPRINE10 MG PO (16:05)
[2019-04-29] MEDS ORDERED: DOTTI1 EAC2 TD (16:06)
[2019-04-29] MEDS ORDERED: DIAZEPAM10 MG PO (16:07)
--- NOTE | 2019-04-29 16:10 | NUR ---
GEOVANNY FROM [facility] IN ROOM TO DISCUSS BASIC PLAN OF CARE, INCLUDING DIRECTORS HOLD.
--- NOTE | 2019-04-29 16:27 | NUR ---
PATIENT SAID SHE HAD TO GO THE BATHROOM SO I PUT HER ON THE BED CHATTERJEE.
--- NOTE | 2019-04-29 16:37 | NUR ---
PT RESTING QUIETLY AT THIS TIME IN BED, RESP EVEN AND UNLABORED, PT WITHIN VIEW OF NURSES STATION.
--- NOTE | 2019-04-29 18:02 | NUR ---
PATIENT IS SLEEPING ON HER RIGHT SIDE.
--- NOTE | 2019-04-29 18:16 | NUR ---
IV SITES ARE INTACT, NO REDNESS OR SWELLING NOTED, FLUIDS AND FLUSHES INFUSE EASILY. PT REMAINS DROWSY, HOWEVER IS MORE RESPONSIVE THAN EARLIER THIS SHIFT.
--- NOTE | 2019-04-29 19:39 | NUR ---
ASSISTED PATIENT USE THE BEDPAN. PATIENT VOIDED 300ML. CHANGED GOWN. PRIMARY RN RAJAN WAS IN THE ROOM.
--- NOTE | 2019-04-29 19:57 | NUR ---
REPORT RECIEVED. PT IS ABLE TO SIT UP AND COOPERATE WITH GOWN CHANGE. SPEECH IS STILL SL SLURRED AND RAPID. IS ABLE TO STATE SHE IS IN THE HOSPITAL AND IS ONE DAY OFF ON DAY AND DATE. DOES NOT REMEMBER EVENTS THAT LED TO ADMISSION. DR DE LA ROSA IN DEPT.
--- NOTE | 2019-04-29 20:24 | NUR ---
PRIMARY RN RAJAN AND I HELPED PATIENT USE THE BEDSIDE COMMODE. PATIENT IS BACK IN BED. PATIENT VOIDED 475ML.
--- NOTE | 2019-04-29 21:50 | NUR ---
DR DE LA ROSA IN DEPT, IS AWARE OF LITHIUM LEVEL. PT AWAKENS EASILY AND IS TAKING WATER WELL.
--- NOTE | 2019-04-29 22:34 | NUR ---
UP TO BSC WITH ASSIST, IS STRONGER THAN EARLIER BUT STILL SOMEWHAT UNSTEADY. VOIDING WELL. TOOK KAYEXELATE WELL.
--- NOTE | 2019-04-29 22:36 | NUR ---
PATIENT USED THE BEDSIDE COMMODE ASSISTED BY THIS WEB OFFSET PRESS FEEDER AND PRIMARY RN RAJAN. PATIENT IS BACK IN BED.
--- NOTE | 2019-04-29 23:40 | NUR ---
LABS DRAWN AND EKG DONE. ASSESSMENT DONE. PT IS MORE ALERT, SPEECH SOFT BUT CLEAR.
--- NOTE | 2019-04-30 01:09 | NUR ---
ASSISTED PATIENT TO BEDSIDE COMMODE AND BACK TO BED. PATIENT THREW UP ABOUT 50ML. PATIENT URINATED 375ML.
--- NOTE | 2019-04-30 01:30 | NUR ---
DR DE LA ROSA WAS GIVEN UPDATE ON LABS AT 0050. PT SLEEPING MOST OF TIME.
--- NOTE | 2019-04-30 03:49 | NUR ---
ASSISTED PATIENT TO BEDSIDE COMMODE AND BACK TO BED WITH PRIMARY RN RAJAN AND THIS COMMERCIAL FIELD INSPECTOR.
--- NOTE | 2019-04-30 03:50 | NUR ---
LAB IN TO DRAW BLOOD. PT UP TO BSC WITH ASSIST STILL WOBBLY WHEN GETTING UP. VOIDING WELL. IS MORE ALERT, ABLE TO STATE THAT SHE NO LONGER WANTS TO HARM SELF. PT IS NOW ABLE TO REMEMBER WHERE SHE WAS WHEN SHE TOOK THE PILLS. PT C/O WHELAN 11/16, GIVEN 650MG TYLENOL. TAKING WATER AND SODA WELL.
--- NOTE | 2019-04-30 05:17 | NUR ---
ASSISTED PATIENT TO THE BEDSIDE COMMODE. URINATED 500ML. PATIENT IS BACK IN BED. MARTELL TOLENTINO IS IN THE ROOM.
--- NOTE | 2019-04-30 05:53 | NUR ---
NOTIFIED BY LAB THAT THE 334 DRAW FOR LITHIUM COULD NOT BE RAN WAS DRAWN IN INCORRECT TUBE. WILL DRAW A STAT LITHIUM LEVEL NOW. DR DE LA ROSA CALLED AND INFORMED OF THIS AND PT'S POTASSIUM LEVEL. ORDERS RECIEVED.
--- NOTE | 2019-04-30 06:10 | NUR ---
PT REMOVED OXYGEN WHILE SLEEPING. O2 SATURATIONS DROPPED INTO THE LOW 80'S. PLACED 2 L NC BACK ON PATINET. SATURATIONS 92 PERCENT ON 2 L AT THIS TIME.
--- NOTE | 2019-04-30 06:35 | NUR ---
PT UP TO BSC WITH 1 PERSON ASSIST. IS ALERT AND ORIENTED.
--- NOTE | 2019-04-30 06:39 | NUR ---
ASSISTED PATIENT TO USE THE BEDSIDE COMMODE. PATIENT IS BACK IN BED.
--- NOTE | 2019-04-30 08:12 | NUR ---
BEAVER MEADOWS SUICIDE ASSESSMENT COMPLETE. PT STATES THAT SHE HAS NOT THOUGHT OF KILLING HERSELF AND DOES NOT HAVE A PLAN TO KILL HERSELF AND HAS NOT TAKEN ACTIONS TO KILL HERSELF. SHE STATED THE ONLY TIME SHE HAS ACTIVELY TRIED TO KILL HERSELF WAS WHEN SHE WAS 7 YEARS OLD. SHE STATED THAT "IF SHE WANTED TO KILL HERSELF WHY WOULD SHE CALL FOR HELP?" PT IS RESTING COMFORTABLY IN BED, EYES CLOSED. WAKES EASILY TO VOICE. ANSWERS QUESTIONS APROPRIATLY.
--- NOTE | 2019-04-30 09:59 | NUR ---
PT STATES SHE FEELS GOOD, DENIES WANTING TO HURT HERSELF.
--- NOTE | 2019-04-30 10:23 | NUR ---
PO POTASSIUM GIVEN. PT ABLE TO SWALLOW WITH NO DIFFICULTY. MOUTH VISUALLY CHECKED AFTER ADMINISTRATION, NO POCKETING NOTED.
--- NOTE | 2019-04-30 11:10 | EKG ---
[facility] [address] [place], [place] [address] Signed Sinus rhythm with premature supraventricular complexes Incomplete right bundle branch block ST \T\ T wave abnormality, consider inferior ischemia Abnormal ECG Confirmed by LISSETH DE LA ROSA DO ([id number]) on 04/30/2019 11:10:09 AM Electronically Signed By: LISSETH DE LA ROSA DO 04/30/19 1110 PATIENT NAME: OCTAVIA RUEDA Electrocardiogram DATE OF : 67 PHYSICIAN: LISSETH DE AL ROSA DO REPORT #: [id number] REPORT IS CONFIDENTIAL AND NOT TO BE RELEASED WITHOUT AUTHORIZATION
--- NOTE | 2019-04-30 11:11 | EKG ---
[facility] [address] [facility] [place] [address] Signed Sinus tachycardia Low voltage QRS Long QTc Incomplete right bundle branch block ST \T\ T wave abnormality, consider inferior ischemia Abnormal ECG When compared with ECG of 29-APR-2019 11:13, (Unconfirmed) premature supraventricular complexes are no longer present T wave inversion no longer evident in Lateral leads QT has lengthened Confirmed by LISSETH DE LA ROSA DO ([id number]) on 04/30/2019 11:11:13 AM Electronically Signed By: LISSETH DE LA ROSA DO 04/30/19 1111 PATIENT NAME: OCTAVIA RUEDA Electrocardiogram DATE OF : 67 PHYSICIAN: LISSETH DE LA ROSA DO REPORT #: [id number] REPORT IS CONFIDENTIAL AND NOT TO BE RELEASED WITHOUT AUTHORIZATION
--- NOTE | 2019-04-30 11:12 | EKG ---
[facility] [address] [facility] [place] [address] Signed Normal sinus rhythm Low voltage QRS Prolonged QT Abnormal ECG When compared with ECG of 29-APR-2019 13:03, (Unconfirmed) T wave inversion no longer evident in Inferior leads Confirmed by LISSETH DE LA ROSA DO ([id number]) on 04/30/2019 11:12:37 AM Electronically Signed By: LISSETH DE LA ROSA DO 04/30/19 111 PATIENT NAME: OCTAVIA RUEDA Electrocardiogram DATE OF : 67 PHYSICIAN: LISSETH DE LA ROSA DO REPORT #: [id number] REPORT IS CONFIDENTIAL AND NOT TO BE RELEASED WITHOUT AUTHORIZATION
--- NOTE | 2019-04-30 11:12 | EKG ---
[facility] [address] [facility] [place], [place] [address] Signed Normal sinus rhythm Prolonged QT Abnormal ECG When compared with ECG of 29-APR-2019 18:04, (Unconfirmed) No significant change was found Confirmed by LISSETH DE LA ROSA DO ([id number]) on 04/30/2019 11:12:42 AM Electronically Signed By: LISSETH DE LA ROSA DO 04/30/19 111 PATIENT NAME: GEN MOHITIA CHRISTIAN Electrocardiogram DATE OF : 67 PHYSICIAN: LISSETH DE LA ROSA DO REPORT #: [id number] REPORT IS CONFIDENTIAL AND NOT TO BE RELEASED WITHOUT AUTHORIZATION
--- NOTE | 2019-04-30 11:39 | NUR ---
[facility] IN FOR CONSULT/FOLLOWUP. PER BILL AT [facility], HOLD IS RELEASED PT HAS AN APPOINTMENT WITH PRESCRIBER AND THERAPIST, DENIED WANTING TO HURT HERSELF OR OTHERS, HAS A SAFETY PLAN IN PLACE. RN TRAVEL SALES CONSULTANT AWARE. AWARE.
--- NOTE | 2019-04-30 12:39 | NUR ---
IV SITE DC'D WNL, TIP OF CATH IS INTACT, NO SWELLING OR REDNESS NOTED. PT GIVEN DISCHARGE INSTRUCTIONS IN WRITING AND REVIEWED BY RN AT BEDSIDE. ALL QUESTIONS ANSWERED. PT REPORTS HER INTENTION TO FOLLOW UP WITH [facility] [place] AND HER MENTAL HEALTHCARE PROVIDER THIS NEXT WEEK. PT IS ALERT AND ORIENTED X4. PT DENIES PAIN, NAUSEA, AND SOB AT THIS TIME.
--- NOTE | 2019-05-01 07:56 | EKG ---
[facility] [address] [facility] [place], [place] [address] Signed Normal sinus rhythm Normal ECG When compared with ECG of 29-APR-2019 23:26, (Unconfirmed) QT has shortened Confirmed by DARIUS INGRAM MD ([id number]) on 05/01/2019 7:55:55 AM Electronically Signed By: DARIUS INGRAM MD 05/01/19 0756 PATIENT NAME: OCTAVIA RUEDA Electrocardiogram DATE OF : 67 PHYSICIAN: DARIUS INGRAM MD REPORT #: [id number] REPORT IS CONFIDENTIAL AND NOT TO BE RELEASED WITHOUT AUTHORIZATION
== END 2019-04-30 13:15 | disposition home or self-care (01) | DRG 918 ==
LOC: ED 11:08 → CCU 15:05 → MS 04-30 10:50
PROVIDERS: ADMIT Student in an Organized Health Care Education/Training Program
DX: T43.592A Poisoning by other antipsychotics and neuroleptics, intentional self-harm, initial encounter (principal); T48.1X2A Poisoning by skeletal muscle relaxants [neuromuscular blocking agents], intentional self-harm, initial encounter; T43.212A Poisoning by selective serotonin and norepinephrine reuptake inhibitors, intentional self-harm, initial encounter; F39 Unspecified mood [affective] disorder; E87.6 Hypokalemia; R40.0 Somnolence; Z88.5 Allergy status to narcotic agent; Z79.899 Other long term (current) drug therapy; Z79.890 Hormone replacement therapy
CPT/HCPCS: 36415; 36600; 51701; 80048; 80053; 80176; 80178; 81001; 82803; 83735; 84443; 84703; 85025; 93005; 93010; 99285-25; G0480; J3475; J3480; J7030; J7060; J7070

== ENCOUNTER 2024-03-03 15:20 | Emergency (ER) | payer OTHER ==
[~2024-03-03] VITALS: Ht 157.5 cm; Wt 71.5 kg
[~2024-03-03 15:20] MED LIST changes: +CYCLOBENZAPRINE10 MG PO; +DIAZEPAM10 MG PO; +PROZAC20 MG PO; +REXULTI1 MG PO
[2024-03-03] MEDS ORDERED: SODIUM CHLORIDE 0.9% 1,000 ML IV PRN (16:45)
[2024-03-03] MEDS ORDERED: ONDANSETRON ODT8 MG PO (16:52)
[2024-03-03] MEDS ORDERED: DICYCLOMINE HCL20 MG PO (16:52)
[2024-03-03 17:50] VITALS: BP 139/79
== END 2024-03-03 17:50 | disposition home or self-care (01) ==
LOC: ED 15:20
DX: K59.00 Constipation, unspecified (principal); E86.0 Dehydration; Z88.8 Allergy status to other drugs, medicaments and biological substances; Z79.899 Other long term (current) drug therapy
CPT/HCPCS: 96360; 99282-25; J7030